=== PATIENT | male | born 1960 | race Caucasian/White ===

== ENCOUNTER → 2020-11-11 11:06 | Outpatient (BNVA) | payer OTHER, SELFPAY | PROVIDERS: PCP Internal Medicine; Referring Provider Internal Medicine; Visit Provider Orthopaedic Surgery | DX: M65.341 Trigger finger, right ring finger (principal); M65.331 Trigger finger, right middle finger | CPT/HCPCS: 99202 ==

== ENCOUNTER 2020-12-09 11:02 | Day surgery (SDC) | payer OTHER, SELFPAY ==
[2020-12-09 11:18] VITALS: BMI 18.4
[2020-12-09 11:26] VITALS: BP 116/79; PULSE 77; RESP 18; TEMP 37.6; O2SAT 99
--- NOTE | 2020-12-09 13:08 | P.OP_ITS ---
Operative Note Operative Note Date of Service: 12/09/20 Narrative: Operative Note Preop diagnosis: 1. Right ring finger Trigger finger Postop diagnosis: 1. Right ring finger Trigger finger Procedure: 1. Right ring finger A1 osmani release Surgeon: Suly Mane MD Anesthesia: local block using 1% lidocaine with epinephrine Findings: No locking or catching after A1 osmani release EBL: Less than 5 mL Tourniquet time: None Specimens: None Complications: None Disposition: Brought to recovery room in stable condition Plan: Follow-up for 7-10 days for wound check and suture removal Indications: The patient is 60 years old, with a right ring finger trigger finger that has been unresponsive to nonoperative management. The risks and benefits of operative treatment including but not limited to risk of damage to blood vessels, nerves, tendons, infection, persistent pain, persistent symptoms, recurrence or possible need for additional surgery were discussed with the patient and the patient wishes to proceed with surgery. Procedure: Once consent was obtained a local block was performed in the preop area using a combination of 1% lidocaine with epinephrine. The patient was then brought back to the operating suite and placed on the operative table in supine position. A tourniquet was applied to the proximal aspect of the right upper extremity and the limb was prepped and draped in a standard surgical fashion. Once assured that we had a good block, a 1.5 cm oblique incision was made centered over the A1 osmani of the right ring finger . The incision was made through the skin to the subcutaneous tissues using a #15 blade. Careful dissection was made down to the level of the A1 osmani using tenotomy scissors, with care being taken to protect the nearby neurovascular structures. A longitudinal incision was made in the A1 osmani 1st using a #15 blade, then using tenotomy scissors under direct visualization. The A1 osmani was noted to be thickened. Following our A1 osmani release, we no longer saw any locking or catching of the digit with flexion and extension. Once satisfied with our A1 osmani release the wound was copiously irrigated with normal saline and hemostasis was obtained with a brief period of local pressure. The skin edges were reapproximated with some 5.0 nylon suture material and a sterile dressing was applied. The patient appears to have tolerated the procedure well and with no complicati ons. All digits were well vascularized at the conclusion of the case.
[2020-12-09 13:10] VITALS: BP 104/58; PULSE 80; RESP 18; TEMP 37; O2SAT 97
== END 2020-12-09 13:27 | disposition home or self-care (01) ==
PROVIDERS: Visit Provider Orthopaedic Surgery
PROC: (CPT 26055; principal; 2020-12-09 12:00)
DX: M65.341 Trigger finger, right ring finger (principal); R73.03 Prediabetes; C14.0 Malignant neoplasm of pharynx, unspecified; Z79.899 Other long term (current) drug therapy; Z88.8 Allergy status to other drugs, medicaments and biological substances
CPT/HCPCS: 26055

== ENCOUNTER → 2020-12-24 11:17 | Outpatient (BNVA) | payer OTHER, SELFPAY | PROVIDERS: Visit Provider Orthopaedic Surgery | DX: M65.341 Trigger finger, right ring finger (principal); M65.331 Trigger finger, right middle finger | CPT/HCPCS: 99212 ==

== ENCOUNTER 2021-03-26 18:10 | Emergency (ER) | payer OTHER, SELFPAY ==
--- NOTE | ~2021-03-26 | CT_ITS ---
EXAMINATION: CT SOFT TISSUE NECK WITHOUT CONTRAST CLINICAL INFORMATION: New right neck pain. History of tonsillar cancer. COMPARISON: Previous neck CT April 2018 TECHNIQUE: Helical imaging was performed in the axial plane with generation of coronal and sagittal reformatted images. This CT examination was performed using dose optimization techniques as appropriate, variously including the following: *Automated exposure control *Adjustment of mA and/or kV according to patient size (this includes techniques or standardized protocols for targeted exams where dose is matched to indication/reason for exam; i.e. extremities or head) *Use of iterative reconstruction technique DLP: 375 mGy-cm FINDINGS: There is asymmetric increased soft tissue seen in the right oropharynx. This begins just inferior to the torus tubarius and extends to the level of the angle of the mandible. This area is heterogeneous in signal with low-attenuation possibly cystic area measuring 1 cm. This measures 1.3 x 2.3 x 3 cm in transverse AP and longitudinal dimension. There is asymmetric thickening of the right aryepiglottic fold and effacement of the right piriform sinus. The patient is edentulous. There is increased sclerosis of the mandible and superior alveolar ridge. This may represent post radiation change. The larynx is normal. The salivary glands and thyroid gland are normal. Visualized intracranial structures are unremarkable. The orbits are normal appearing. There is bilateral maxillary sinus disease, right greater than left. There are erosive changes of the posterior inferior wall of the right maxillary sinus and destruction of the bone. The paranasal sinuses, mastoid air cells and middle ears are otherwise clear. There is asymmetric appearance of the temporomandibular joints with slight anterior subluxation of the left mandibular condyle compared to the right. There are no enlarged lymph nodes. There is a small amount of fluid seen adjacent to the right sternocleidomastoid muscle near its attachment to the sternum. There is atherosclerotic disease. There is biapical pleural and parenchymal scarring, right greater than left. There are scattered areas of mild bronchial wall thickening and increased peribronchial attenuation seen in the right upper lobe. There is a 4 mm right upper lobe nodule axial image 152 series 2. This is not included in the [id number] on previous neck CT scan and cannot be compared. There is shotty mediastinal lymphadenopathy. There are degenerative changes of the cervical spine. CT/CT soft tissue neck wo con IMPRESSION: Abnormal heterogeneous appearing soft tissue in the right oropharynx. This appears decreased in size compared to April 2018. It is uncertain whether this represents post treatment change or could represent residual neoplasm. Asymmetric thickening of the right aryepiglottic fold and effacement of the right piriformis sinus. No enlarged lymph nodes seen. Increased sclerosis heterogeneous attenuation of the mandible and superior alveolar ridge, question representing post radiation change. Bilateral maxillary sinus disease, right greater than left. There is bone destruction of the posterior inferior wall of the right maxillary sinus. This may be related to infection or post radiation change.
[2021-03-26 18:30] VITALS: BP 132/76; BP 134/78; PULSE 77; RESP 18; TEMP 36.7; O2SAT 95; O2SAT 98; BMI 17.9
--- NOTE | 2021-03-26 19:50 | ED.GENADULT ---
HPI - General Adult General Chief complaint: Neck Pain/Injury Stated complaint: NECK PAINS/P COUGHING FIT Time Seen by Provider: 03/26/21 19:34 Source: patient Mode of arrival: ambulatory Limitations: no limitations History of Present Illness HPI narrative: Patient comes emergency room complaining of right-sided neck pain for 3 weeks. Patient denies any injury. Patient states that 3 weeks ago, he had a lot of vomiting, after he was done, he noticed that the right side of her neck started hurting. Patient denies fever chills, no midline neck tenderness or left-sided neck pain. Related Data Home Medications Medication Instructions Recorded Confirmed oxycodone 10 mg tablet 10 mg PO QID PRN 11/11/20 polyethylene glycol 3350 17 gram 17 g PO DAILY 11/11/20 oral powder packet Previous Rx's Medication Instructions Recorded hydrocodone-acetaminophen 1 tab PO Q4-6H PRN #5 tab 12/09/20 diazepam [Valium] 2 mg PO TID PRN #10 tab 03/26/21 hydromorphone [Dilaudid] 2 mg PO Q6H PRN #10 tab 03/26/21 Allergies Allergy/AdvReac Type Severity Reaction Status Date / Time Adhesive Tape Allergy Unknown rash Uncoded 03/26/21 18:30 clonidine Allergy Unknown Unknown Uncoded 03/26/21 18:30 Review of Systems Review of Systems: Constitutional : No Weight loss, No Fever, No Chills, No Night Sweats, No Fatigue, No Malaise ENT/Mouth : No Hearing loss, No Ear Pain, No Nasal Congestion, No Sinus Pain, No Hoarseness, No sore throat, No Rhinorrhea, No Swallowing Difficulty Eyes: No Eye Pain, No Swelling, No Redness, No Foreign Body, No Discharge, No Vision Changes Cardiovascular : No Chest Pain, No SOB, No Dyspnea on Exertion, No Orthopnea, No Edema, No Palpitations Respiratory : No Cough, No Sputum, No Wheezing, No Smoke Exposure, No Dyspnea Gastrointestinal : No Nausea, No Vomiting, No Diarrhea, No Constipation, No abdominal Pain, No Hematochezia, No Melena Genitourinary : no irregular bleeding, No Dysuria, No Urinary Frequency, No Hematuria, No Urinary Incontinence, No Urgency, No Flank Pain, No Urinary Flow Changes, No Hesitancy Musculoskeletal : No joint pain, No Myalgias, No Joint Swelling, complaining of right-sided neck pain for 3 weeks Skin : No Skin Lesions, No rash Neuro : No Weakness, No Numbness, No Paresthesias, No Loss of Consciousness, No Dizziness, No Headache Psych : No Anxiety/Panic, No Depression, No SI/HI/AH/VH, No Social Issues, Heme/Lymph: No Bruising, No Bleeding,No Lymphadenopathy Endocrine : No Polyuria, No Polydipsia, No Temperature Intolerance PMF Past Medical History Medical History Borderline diabetic Throat cancer Family History Family History Father No problems noted. Mother No problems noted. Social History Social History Unable to assess alcohol history related to: Unknown Alcohol intake: never Smoked in Last 30 Days: No Use of substances other than those prescribed or required for medical reasons: No Any prior treatment program specific to substance use: No Advance Directives: No Advance Directives Information Provided: No Current occupational status: unemployed Current occupation: right handed Physical Exam Vital Signs: Vital Signs: Last Vital Signs Temp 98.1 F 03/26/21 18:30 Pulse 78 03/26/21 22:10 Resp 16 03/26/21 22:10 BP 135/67 03/26/21 22:10 Pulse Ox 99 03/26/21 22:10 Body Mass Index 17.9 Appearance: Alert. Oriented X3. No acute distress. Eyes: Pupils equal, round and reactive to light. ENT: C-collar in place, cannot open fully his mouth due to color. Neck: C-collar in place, no C-spine tenderness, complaining of pain on the right side of the neck CVS: Normal heart rate and rhythm. Pulses normal. Normal S1 and S2 Respiratory: No respiratory distress. Breath sounds normal. No Wheezing. No rales Abdomen: Soft and nontender. No rigidity. No distention. good BS x4 Skin: Skin warm and dry. Normal skin color. Normal skin turgor. Extremities: No lower extremity edema. No lower extremity edema. No Lacerations. No Rash Neuro: Oriented X 3. No motor deficit. No sensory deficit. Moving all extermities. No slurred speech. Course Course Course Narrative: I discussed the CT scan with the patient and his daughter. The CT scan has significant abnormal readings, discussed with the patient his daughter that is uncertain whether the patient has new bone destruction in the posterior inferior wall of the right maxillary sinus, a possible residual neoplasm, or all of his are old, secondary to radiation. I discussed with the patient that we can wait until his records from the other hospital become available for comparison and then we can make a decision. The patient and the daughter decided that they would like to go home, and they can follow up with [facility] specialist tomorrow. I provided for them CT scan and printout. Patient was given 1 dose of IM Dilaudid with no significant relief. Patient was given additional dose of oral Dilaudid and Valium. As mentioned above, patient will like to be discharged home and he will follow-up with his specialist tomorrow. The patient's prescriptions had to be printed, there was a system error transmitted the prescriptions to the patient's pharmacy Medical Decision Making Imaging Data Neck CT: Radiologist's impression: FINDINGS: There is asymmetric increased soft tissue seen in the right oropharynx. This begins just inferior to the torus tubarius and extends to the level of the angle of the mandible. This area is heterogeneous in signal with low-attenuation possibly cystic area measuring 1 cm. This measures 1.3 x 2.3 x 3 cm in transverse AP and longitudinal dimension. There is asymmetric thickening of the right aryepiglottic fold and effacement of the right piriform sinus. The patient is edentulous. There is increased sclerosis of the mandible and superior alveolar ridge. This may represent post radiation change. The larynx is normal. The salivary glands and thyroid gland are normal. Visualized intracranial structures are unremarkable. The orbits are normal appearing. There is bilateral maxillary sinus disease, right greater than left. There are erosive changes of the posterior inferior wall of the right maxillary sinus and destruction of the bone. The paranasal sinuses, mastoid air cells and middle ears are otherwise clear. There is asymmetric appearance of the temporomandibular joints with slight anterior subluxation of the left mandibular condyle compared to the right. There are no enlarged lymph nodes. There is a small amount of fluid seen adjacent to the right sternocleidomastoid muscle near its attachment to the sternum. There is atherosclerotic disease. There is biapical pleural and parenchymal scarring, right greater than left. There are scattered areas of mild bronchial wall thickening and increased peribronchial attenuation seen in the right upper lobe. There is a 4 mm right upper lobe nodule axial image 152 series 2. This is not included in the [id number] on previous neck CT scan and cannot be compared. There is shotty mediastinal lymphadenopathy. There are degenerative changes of the cervical spine. CT/CT soft tissue neck wo con IMPRESSION: Abnormal heterogeneous appearing soft tissue in the right oropharynx. This appears decreased in size compared to April 2018. It is uncertain whether this represents post treatment change or could represent residual neoplasm. Asymmetric thickening of the right aryepiglottic fold and effacement of the right piriformis sinus. No enlarged lymph nodes seen. Increased sclerosis heterogeneous attenuation of the mandible and superior alveolar ridge, question representing post radiation change. Bilateral maxillary sinus disease, right greater than left. There is bone destruction of the posterior inferior wall of the right maxillary sinus. This may be related to infection or post radiation change. Discharge Plan Discharge Clinical Impression: Neck pain Patient Disposition: Home, Self-Care Instructions: Neck Pain (ED) Additional Instructions: Please follow-up with your primary care physician tomorrow and with your specialist tomorrow. If you have any worsening or new symptoms, please return to the emergency room or call 911 Prescriptions: New hydromorphone [Dilaudid] 2 mg tablet 2 mg PO Q6H PRN (Reason: pain) Qty: 10 RF: 0 diazepam [Valium] 2 mg tablet 2 mg PO TID PRN (Reason: muscle spasm) Qty: 10 RF: 0 No Action hydrocodone-acetaminophen 5-325 mg tablet 1 tab PO Q4-6H PRN (Reason: pain) Qty: 5 RF: 0
[2021-03-26 20:05] VITALS: RESP 18
[2021-03-26] MEDS: HYDROmorphone HCl 1 MG/ML SYRINGE IM (20:05)
--- NOTE | 2021-03-26 20:16 | PC.NURSE ---
went to give client his pain medication and he was up walking around in room with collar. client educated the importance to stay in bed while collared. client refused valium due to swallowing difficulties. clientdid take injection of pain medication.
[2021-03-26 21:32] VITALS: BP 123/68; PULSE 84; RESP 16; O2SAT 99
[2021-03-26 22:10] VITALS: BP 135/67; PULSE 78; RESP 16; O2SAT 99
[2021-03-26] MEDS: HYDROmorphone HCl 2 MG TABLET 1 MG PO (23:41)
[2021-03-26] MEDS: diazePAM 5 MG TABLET PO (23:46)
== END 2021-03-26 23:50 | disposition home or self-care (01) ==
PROVIDERS: Emergency Provider Emergency Medicine
DX: M54.2 Cervicalgia (principal); Z85.21 Personal history of malignant neoplasm of larynx
CPT/HCPCS: 70490; 96372; 99284; 99285; J1170

== ENCOUNTER 2021-07-30 13:21 | Emergency (ER) | payer OTHER, SELFPAY ==
--- NOTE | ~2021-07-30 | XR_ITS ---
EXAMINATION: LEFT ANKLE AND LEFT FOOT. CLINICAL INFORMATION: Status post fall. Pain. COMPARISON: None TECHNIQUE: Left ankle 2 views. Left foot 3 views. FINDINGS: LEFT ANKLE: There is no mild lateral malleolar soft tissue swelling. No visible acute fracture, dislocation. There is mild dorsal intertarsal spurring. LEFT FOOT: There is a nondisplaced fracture base of fifth metatarsal. No additional fracture seen. The ankle mortise and subtalar joints are normal. XR/XR ankle LT 2V IMPRESSION: Undisplaced fracture base of fifth metatarsal. No visible acute fracture or dislocation seen. Unremarkable left ankle exam.
--- NOTE | ~2021-07-30 | XR_ITS ---
EXAMINATION: LEFT ANKLE AND LEFT FOOT. CLINICAL INFORMATION: Status post fall. Pain. COMPARISON: None TECHNIQUE: Left ankle 2 views. Left foot 3 views. FINDINGS: LEFT ANKLE: There is no mild lateral malleolar soft tissue swelling. No visible acute fracture, dislocation. There is mild dorsal intertarsal spurring. LEFT FOOT: There is a nondisplaced fracture base of fifth metatarsal. No additional fracture seen. The ankle mortise and subtalar joints are normal. XR/XR foot LT min 3V IMPRESSION: Undisplaced fracture base of fifth metatarsal. No visible acute fracture or dislocation seen. Unremarkable left ankle exam.
[2021-07-30 14:21] VITALS: BP 123/75; BP 129/75; PULSE 81; PULSE 89; RESP 18; TEMP 35.8; O2SAT 100; O2SAT 99; BMI 19.8
--- NOTE | 2021-07-30 15:24 | ED.LOWEXIN ---
HPI - Extremity Injury (Lower) General Chief Complaint: Extremity Injury, Lower Stated Complaint: FALL FROM STANDING,ANKLE PAIN/SWELLING Time Seen by Provider: 07/30/21 14:28 Source: patient Mode of arrival: ambulatory Limitations: no limitations History of Present Illness HPI Narrative: 61-year-old male with history of throat cancer presents to the ER with left foot pain after he twisted his ankle at home while reaching for the remote control earlier today. He fell down when he hurt his foot, but he did not hit his head or lose consciousness. He is not on any blood thinners at home. He is on chronic pain medicine for his cancer. He is difficult to understand due to his throat cancer. He reports this is his baseline speech. He at baseline ambulates with a cane and is able to do so but has increased pain in his left foot. He has no numbness or tingling. MD complaint: ankle injury and foot injury Onset (ago): hour(s) Type of Injury: inversion Place: home Severity: moderate Severity scale (1-10): 6 Relieving factors: immobilization and rest Exacerbating factors: weight bearing, movement and palpation Context: fall Associated symptoms: swelling and able to partially bear weight Other symptoms: none Related Data Home Medications Medication Instructions Recorded Confirmed oxycodone 10 mg tablet 10 mg PO QID PRN 11/11/20 polyethylene glycol 3350 17 gram 17 g PO DAILY 11/11/20 oral powder packet Previous Rx's Medication Instructions Recorded hydrocodone 5 mg-acetaminophen 325 1 tab PO Q4-6H PRN #5 tab 12/09/20 mg tablet diazepam 2 mg tablet (Valium) 2 mg PO TID PRN #10 tab 03/26/21 hydromorphone 2 mg tablet 2 mg PO Q6H PRN #10 tab 03/26/21 (Dilaudid) hydromorphone 4 mg tablet 4 mg PO Q4-6H PRN #10 tab 07/30/21 (Dilaudid) Allergies Allergy/AdvReac Type Severity Reaction Status Date / Time Adhesive Tape Allergy Unknown rash Uncoded 07/30/21 14:21 clonidine Allergy Unknown Unknown Uncoded 07/30/21 14:21 Review of Systems Review of Systems: Constitutional: No Fever, No Chills ENT/Mouth: + sore throat, No Rhinorrhea, + Swallowing Difficulty Cardiovascular: No Chest Pain, No SOB Respiratory: No Cough, No Sputum Gastrointestinal: No Nausea, No Vomiting, No Diarrhea, No abdominal Pain Musculoskeletal: + joint pain, + Myalgias Skin: + Skin Lesions, No rash Neuro: No Weakness, No Numbness, No Dizziness, No Headache Heme/Lymph: No Bruising PMFSH Past Medical History Medical History Borderline diabetic Throat cancer Family History Family History Father No problems noted. Mother No problems noted. Social History Social History Unable to assess alcohol history related to: Unknown Alcohol intake: never Advance Directives: No Advance Directives Information Provided: Yes Current occupational status: unemployed Current occupation: right handed Physical Exam Vital Signs: Vital Signs: Last Vital Signs Temp 96.5 F L 07/30/21 14:21 Pulse 81 07/30/21 14:21 Resp 18 07/30/21 14:21 BP 129/75 07/30/21 14:21 Pulse Ox 99 07/30/21 14:21 Body Mass Index 19.8 Appearance: Alert. Oriented X3. No acute distress. HEENT: normal inspection CVS: Normal heart rate and rhythm. Pulses normal. Respiratory: No respiratory distress. Skin: Skin warm and dry. Normal skin color. Normal skin turgor. No rashes. Extremities: left lateral foot with swelling and tenderness along 5th metatarsal, mild erythema, warm and well perfused. NV intact distally. ambulating with steady gait. left ankle with minimal swelling and no tenderness to the lateral malleolus. Neuro: Oriented X 3. No motor deficit. No sensory deficit. Garbled speech due to throat cancer, chronic Course Course Course Narrative: 61-year-old male presenting to the ER with left lateral foot pain and ankle pain after she twisted his ankle earlier today. He is able to ambulate using his cane. The foot is tender and swollen along the 5th metatarsal, will get x-rays for further evaluation. Reevaluation(s) Reevaluation #1: X-ray showing a nondisplaced 5th metatarsal fracture. He was placed in a walking boot. He will be given additional p.o. Dilaudid which she is on chronically. He is due for refill tomorrow. He will follow-up with orthopedics for his foot fracture. Results and management were discussed with his daughter over the phone as well. Stable for DC home. Critical Care Time Critical Care Time Critical Care Time: No Discharge Plan Discharge Clinical Impression: Metatarsal fracture Qualifiers: Encounter type: initial encounter Metatarsal bone: fifth Fracture type: closed Fracture alignment: nondisplaced Laterality: left Qualified Code(s): S92.355A - Nondisplaced fracture of fifth metatarsal bone, left foot, initial encounter for closed fracture Patient Disposition: Home, Self-Care Instructions: Foot Fracture in Adults (ED) Additional Instructions: Your x-ray showed a non-displaced fracture of the foot bone associated with your pinky toe. Wear the walking boot given to your in the ER when you are walking around. When you are home resting, take it off, elevate your foot and apply ice several times per day. Take Motrin and/or Tylenol as needed for pain. Follow up with Orthopedics in 1 week - name and number listed below. Follow up with your doctor as needed. If you develop new or worsening symptoms call 911 or come back to the ER for further evaluation. Prescriptions: New hydromorphone [Dilaudid] 4 mg tablet 4 mg PO Q4-6H PRN (Reason: pain) Qty: 10 RF: 0 No Action hydrocodone-acetaminophen 5-325 mg tablet 1 tab PO Q4-6H PRN (Reason: pain) Qty: 5 RF: 0 hydromorphone [Dilaudid] 2 mg tablet 2 mg PO Q6H PRN (Reason: pain) Qty: 10 RF: 0 diazepam [Valium] 2 mg tablet 2 mg PO TID PRN (Reason: muscle spasm) Qty: 10 RF: 0 Referrals: Lety Ogden PA-C [[facility] [employer]] - 1 week (5th metatarsal fracutre) Interventions: ED Discharge Assessment Last Done: 07/30/21 16:32 Discharge Date/Time: 07/30/21 16:32
== END 2021-07-30 16:32 | disposition home or self-care (01) ==
PROVIDERS: Emergency Provider Internal Medicine
DX: S92.355A Nondisplaced fracture of fifth metatarsal bone, left foot, initial encounter for closed fracture (principal); G89.3 Neoplasm related pain (acute) (chronic); C14.0 Malignant neoplasm of pharynx, unspecified; Z79.891 Long term (current) use of opiate analgesic; X50.1XXA Overexertion from prolonged static or awkward postures, initial encounter; Y93.9 Activity, unspecified; Y92.009 Unspecified place in unspecified non-institutional (private) residence as the place of occurrence of the external cause; Y99.9 Unspecified external cause status
CPT/HCPCS: 73600; 73630; 99283

== ENCOUNTER 2021-11-09 13:53 | Emergency (ER) | payer OTHER, SELFPAY ==
--- NOTE | ~2021-11-09 | CT_ITS ---
EXAMINATION: CT CHEST WITHOUT CONTRAST CLINICAL INFORMATION: Cough and vomiting COMPARISON: Previous chest x-ray most recent December 2017 TECHNIQUE: Multidetector volumetric CT imaging of the chest was done. Axial MIP volume rendering provided. Sagittal and coronal reformatted images were obtained. This CT examination was performed using dose optimization techniques as appropriate, variously including the following: *Automated exposure control *Adjustment of mA and/or kV according to patient size (this includes techniques or standardized protocols for targeted exams where dose is matched to indication/reason for exam; i.e. extremities or head) *Use of iterative reconstruction technique DLP: 255 mGy-cm FINDINGS: LUNGS: There is evidence of emphysema. There is biapical pleural and parenchymal scarring. There are scattered areas of bronchial wall thickening, increased bronchial soft tissue opacification and peribronchial nodular opacities or tree-in-bud appearance. Findings are suggestive of airways disease. Largest areas are in the right middle lobe and lingula right middle lobe findings can be seen on old exam from 07/19/2012 exam and do not appear appreciably changed. Nodular opacities and airways disease in the right upper, right middle and left lower lobe are new in the interval from 2011. MEDIASTINUM: There is diffuse mediastinal lymphadenopathy. Larger lymph nodes are upper normal in size measuring 1 cm in short axis in the right paratracheal and precarinal regions. The heart does not appear enlarged. There is coronary artery calcification. There is no pericardial effusion. The esophagus appears normal. No abnormal wall thickening extraluminal air or mediastinal fluid is seen. PLEURA: There is no pleural effusion. No pleural mass or thickening. AXILLA: Is right axillary lymphadenopathy. There is bilateral gynecomastia. UPPER ABDOMEN: See abdominal and pelvic CT report OSSEOUS STRUCTURES: Unremarkable. CT/CT chest wo con IMPRESSION: Emphysema. Biapical pleural and parenchymal scarring, increased from prior exam. Diffuse airways disease with peribronchial nodular opacities increased from previous exam. Chest CT follow-up recommended. Fleischner guidelines were followed.
--- NOTE | ~2021-11-09 | CT_ITS ---
EXAMINATION: CT ABDOMEN AND PELVIS WITHOUT CONTRAST CLINICAL INFORMATION: Cough and vomiting COMPARISON: Previous CT of the abdomen and pelvis from 2009 and abdominal ultrasound December 2015 TECHNIQUE: Multidetector volumetric imaging was performed from the superior aspect of the liver through the pubic symphysis. Sagittal and coronal reformatted images were obtained on the technologist's workstation. This CT examination was performed using dose optimization techniques as appropriate, variously including the following: *Automated exposure control *Adjustment of mA and/or kV according to patient size (this includes techniques or standardized protocols for targeted exams where dose is matched to indication/reason for exam; i.e. extremities or head) *Use of iterative reconstruction technique DLP: 499 mGy-cm FINDINGS: LUNG BASES: The visualized lung bases are unremarkable. LIVER, GALLBLADDER, AND BILIARY TREE: The contour of the liver is slightly irregular questionable for mild cirrhotic change. The liver is normal in size. There is a small calcification in the right lobe of the liver near the gallbladder that is stable. No other focal liver lesion is seen. The gallbladder is normal-appearing. There is no biliary duct dilatation. PANCREAS: There are small calcifications in the uncinate process of the head of the pancreas questionable for evidence of chronic pancreatitis. The pancreas is otherwise unremarkable. SPLEEN: Unremarkable. ADRENAL GLANDS: Unremarkable. KIDNEYS AND URETERS: The small 1 to 2 mm stone in the lower pole of the left kidney. There is a subcentimeter high attenuation lesion in the lower pole the right kidney probably representing a hyperdense cyst. BLADDER: Unremarkable. GASTROINTESTINAL TRACT: There is a G-tube in the stomach. There is question of mild bowel wall thickening of the mid and distal stomach. Small and large bowel is unremarkable. The appendix is unremarkable. ABDOMINAL WALL: No significant hernia is appreciated. LYMPH NODES: Normal. VASCULAR: There is evidence of severe atherosclerotic disease. No aneurysm is seen. PELVIC VISCERA: Unremarkable OSSEOUS STRUCTURES: There are degenerative changes of the spine. CT/CT abdomen pelvis wo con IMPRESSION: G-tube in satisfactory position in the stomach. There is question of mild wall thickening of the stomach. Small left renal stone. Question changes of chronic pancreatitis in the head of the pancreas. Severe atherosclerotic disease. Fleischner guidelines were followed.
[2021-11-09 14:00] VITALS: BP 156/73; PULSE 95; RESP 15; TEMP 37.1; O2SAT 99
[2021-11-09 14:05] VITALS: BP 134/74; BP 156/73; PULSE 89; PULSE 90; RESP 16; TEMP 37.1; O2SAT 98; O2SAT 99; BMI 20.1
--- NOTE | 2021-11-09 14:52 | ED.GENADULT ---
HPI - General Adult General Chief complaint: Nausea/Vomiting/Diarrhea Stated complaint: nausea/vomiting/swelling Time Seen by Provider: 11/09/21 14:51 Source: patient Limitations: no limitations History of Present Illness HPI narrative: This is a 61-year-old male with a history of throat cancer status post surgery for the cancer, who does not take food or fluids by mouth but has been vomiting for 3 days. The patient does have a G-tube. Does complain of some abdominal pain. He denies diarrhea. Has been urinating some. He denies any fever. He has also noted increased cough recently, productive of some light phlegm Related Data Home Medications Medication Instructions Recorded Confirmed oxycodone 10 mg tablet 10 mg PO QID PRN 11/11/20 polyethylene glycol 3350 17 gram 17 g PO DAILY 11/11/20 oral powder packet Previous Rx's Medication Instructions Recorded hydrocodone 5 mg-acetaminophen 325 1 tab PO Q4-6H PRN #5 tab 12/09/20 mg tablet diazepam 2 mg tablet (Valium) 2 mg PO TID PRN #10 tab 03/26/21 hydromorphone 2 mg tablet 2 mg PO Q6H PRN #10 tab 03/26/21 (Dilaudid) hydromorphone 4 mg tablet 4 mg PO Q4-6H PRN #10 tab 07/30/21 (Dilaudid) ondansetron 4 mg disintegrating 4 mg PO Q6H PRN #20 tab 11/09/21 tablet Allergies Allergy/AdvReac Type Severity Reaction Status Date / Time Adhesive Tape Allergy Unknown rash Uncoded 07/30/21 14:21 clonidine Allergy Unknown Unknown Uncoded 07/30/21 14:21 Review of Systems Constitutional: Constitutional: Reports as per HPI and Denies fever(s) Eyes: Eyes: Reports as per HPI ENT: Reports as per HPI Cardiovascular: Cardiovascular: Reports no additional cardiovascular complaints Respiratory: Respiratory: Reports cough Gastrointestinal: Gastrointestinal: Denies diarrhea, Reports nausea and Reports vomiting Musculoskeletal: Musculoskeletal: Reports no additional musculoskeletal complaints Neurologic: Denies Sensory deficit (Neuro) [facility] Past Medical History Medical History Borderline diabetic Throat cancer Family History Family History Father No problems noted. Mother No problems noted. Social History Social History Unable to assess alcohol history related to: Unknown Alcohol intake: never Advance Directives: No Advance Directives Information Provided: Yes Current occupational status: unemployed Current occupation: right handed Physical Exam Vital Signs: Vital Signs: Last Vital Signs Temp 98.7 F 11/09/21 14:05 Pulse 89 11/09/21 14:05 Resp 16 11/09/21 14:05 BP 156/73 H 11/09/21 14:05 Pulse Ox 99 11/09/21 14:05 BMI result Body Mass Index 20.1 Const: Other: Patient with right side of the neck to the upper chest and right ear status post prior surgery with scar tissue, chronic erythema. Patient with a frequent hacking cough. Patient also dry heaving. General: cooperative, no acute distress and alert Orientation/consciousness: patient oriented x3 HENMT: Head: Yes normal to inspection Eyes: General: appearance normal, both eyes and all related structures Eyelids: Yes eyelids normal Conjunctivae: conjunctivae normal Pupils: Equal, round and reactive pupils present Neck: Neck: Yes normal visual inspection and Yes supple Chest: Chest palpation & inspection: normal inspection of the chest Resp: Effort & Inspection: normal respiratory effort Auscultation: clear to auscultation bilaterally Cardio: Rate: regular rate Rhythm: regular rhythm Heart sounds: S1 normal heart sound present, S2 normal heart sound present, no gallops, no murmurs and no rubs GI: Other: G-tube in place. Bowel sounds hypoactive. No distension Palpation (GI): Soft to palpation, nontender and Other GI palpation findings present (Non-distended) Auscultation: normal bowel sounds Skin: General skin exam: no rashes or lesions noted Neuro: General: patient oriented x3, no focal motor deficits and CN's II-XI intact bilaterally Cranial nerves: Yes Equal, round and reactive pupils present Cognition (Neuro): normal cognition Motor exam (neuro): 5/5 motor strength present throughout Sensory Exam: No Sensory deficit (Neuro) Extrem: General: Yes normal to inspection and Yes no pedal edema Psych: Appearance: grossly normal Affect: normal affect Medical Decision Making MDM Narrative Medical decision making narrative: Patient with history of head neck cancer, does not take p.o. food or fluids, takes only via G-tube, complains of vomiting. Patient did have some wetness dry heaving here but the patient was mostly sleeping during his ED stay. The patient was witnessed ambulating to the bathroom a few times and ambulated normally. Labs do not show any evidence of dehydration or hypokalemia. BUN to creatinine ratio is normal. CT of the chest abdomen and pelvis without IV contrast did not show any evidence of pneumonia, bowel obstruction. Lipase was normal. Will prescribe Zofran for the patient to use sublingually as needed for nausea, and he can follow up with primary care physician. Patient has had medicine associated nausea and vomiting the past Lab Data Lab results reviewed: Yes I reviewed the patient's lab results. Result diagrams: 11/09/21 15:25 11/09/21 15:25 Labs: Lab Results 11/09/21 11/09/21 Range/Units 15:25 15:25 WBC 9.6 (4.8-10.8) X10*3/uL RBC 4.23 L (4.60-5.80) X10*6/uL Hgb 13.0 L (14.0-18.0) g/dl Hct 39.1 L (42.0-52.0) % MCV 92.4 (80.0-98.0) fL MCH 30.7 (27.0-33.0) pg MCHC 33.2 (31.0-36.0) g/dl RDW 13.5 (11.0-16.0) % Plt Count 164 (160-400) X10*3/uL MPV 9.9 (9.4-12.4) fL Immature Gran % (Auto) 0.4 (0.0-0.4) % Neut % (Auto) 87.9 H (45-73) % Lymph % (Auto) 4.8 L (20-40) % Mcintosh % (Auto) 6.8 (2-11) % Eos % (Auto) 0.0 (0-4) % Baso % (Auto) 0.1 (0-2) % Lymph # (Auto) 0.5 L (1.2-4.9) X10*3/uL Mcintosh # (Auto) 0.7 (0.1-1.2) X10*3/uL Eos # (Auto) 0.0 (0.0-0.4) X10*3/uL Baso # (Auto) 0.0 (0.0-0.2) X10*3/uL Abs Immat Gran (auto) 0.04 H (0.00-0.03) X10*3/uL Absolute Neuts (auto) 8.4 H (2.0-8.3) x10*3/uL Absolute Nucleated RBC 0.000 (0.0-0.012) X10*3/uL Nucleated RBC % (auto) 0.0 (0.0-0.2) /100WBC Sodium 133 L (135-145) mmol/L Potassium 3.9 (3.3-5.1) mmol/L Chloride 94 L (96-108) mmol/L Carbon Dioxide 29 (22-29) mmol/L Anion Gap 14 (12-20) BUN 12 (9-16) mg/dL Creatinine 0.81 (0.5-1.4) mg/dL Estim Creat Clear Calc 82.7 Estimated GFR > 60 Random Glucose 147 H (60-115) mg/dL Calcium 9.8 (8.4-10.2) mg/dL Total Bilirubin 2.2 H (0.0-1.0) mg/dL AST 21 (5-37) U/L ALT 21 (0-40) U/L Alkaline Phosphatase 103 (39-117) U/L Total Protein 9.1 H (6.5-8.0) g/dL Albumin 4.3 (3.5-5.0) g/dL Lipase < 4 L (8-78) U/L Imaging Data CT chest without contrast: Radiologist's impression: IMPRESSION: Emphysema. Biapical pleural and parenchymal scarring, increased from prior exam. Diffuse airways disease with peribronchial nodular opacities increased from previous exam. Chest CT follow-up recommended. CT abdomen and pelvis without IV contrast: Radiologist's impression: IMPRESSION: G-tube in satisfactory position in the stomach. There is question of mild? wall thickening of the stomach. Small left renal stone. Question changes of chronic pancreatitis in the head of the pancreas. Severe atherosclerotic disease. ? Discharge Plan Discharge Clinical Impression: Vomiting Patient Disposition: Home, Self-Care Instructions: Acute Nausea and Vomiting (ED) Additional Instructions: Make sure to take plenty of fluids via your G-tube. Use the ondansetron as prescribed for nausea. Follow-up with primary care physician. Return for any new or worsened symptoms such as inability to hold down fluids, fever, shortness of breath or worsening cough Prescriptions: New ondansetron 4 mg tablet,disintegrating 4 mg PO Q6H PRN (Reason: nausea and vomiting) Qty: 20 RF: 0 No Action hydrocodone-acetaminophen 5-325 mg tablet 1 tab PO Q4-6H PRN (Reason: pain) Qty: 5 RF: 0 hydromorphone [Dilaudid] 2 mg tablet 2 mg PO Q6H PRN (Reason: pain) Qty: 10 RF: 0 diazepam [Valium] 2 mg tablet 2 mg PO TID PRN (Reason: muscle spasm) Qty: 10 RF: 0 hydromorphone [Dilaudid] 4 mg tablet 4 mg PO Q4-6H PRN (Reason: pain) Qty: 10 RF: 0
[2021-11-09 15:28] LABS: MANUAL DIFF FLAG NO
[2021-11-09] MEDS: 0.9 % Sodium Chloride 1,000 ML 999 ML IV (15:28)
[2021-11-09] MEDS: ondansetron HCL 4 MG/2 ML VIAL IVPUSH (15:29)
[2021-11-09 15:30] LABS: Basophils Percent Auto 0.1 % (0-2); Hematocrit 39.1 % (42.0-52.0); Imm Gran Abs Auto 0.04 X10*3/uL (0.00-0.03); Imm Gran Pct Auto 0.4 % (0.0-0.4); Lymphocytes Absolute Auto 0.5 X10*3/uL (1.2-4.9); Lymphocytes Percent Auto 4.8 % (20-40); Mean Corpuscular HGB Conc 33.2 g/dl (31.0-36.0); Mean Corpuscular Hemoglobin 30.7 pg (27.0-33.0); Mean Corpuscular Volume 92.4 fL (80.0-98.0); Mean Platelet Volume 9.9 fL (9.4-12.4); Monocytes Absolute Auto 0.7 X10*3/uL (0.1-1.2); Monocytes Percent Auto 6.8 % (2-11); Neutrophils Absolute Auto 8.4 x10*3/uL (2.0-8.3); Neutrophils Percent Auto 87.9 % (45-73); Platelet Count 164 X10*3/uL (160-400); Red Blood Count 4.23 X10*6/uL (4.60-5.80); Red Cell Distribution Width 13.5 % (11.0-16.0); White Blood Count 9.6 X10*3/uL (4.8-10.8)
[2021-11-09 15:53] LABS: Alanine Aminotransferase 21 U/L (0-40); Albumin Level 4.3 g/dL (3.5-5.0); Alkaline Phosphatase 103 U/L (39-117); Anion Gap 14 (12-20); Aspartate Amino Transferase 21 U/L (5-37); Bilirubin Total 2.2 mg/dL (0.0-1.0); Blood Urea Nitrogen 12 mg/dL (9-16); Calcium 9.8 mg/dL (8.4-10.2); Carbon Dioxide 29 mmol/L (22-29); Chloride 94 mmol/L (96-108); Creatinine Clr Calc Pharmacy 82.7; Estimated Glomerular Filt Rate > 60; Glucose Random 147 mg/dL (60-115); Lipase < 4 U/L (8-78); Potassium 3.9 mmol/L (3.3-5.1); Sodium 133 mmol/L (135-145); Total Protein 9.1 g/dL (6.5-8.0)
[2021-11-09 17:45] VITALS: BP 148/71; PULSE 106; RESP 18; TEMP 37.5; O2SAT 93
== END 2021-11-09 18:19 | disposition home or self-care (01) ==
PROVIDERS: Emergency Provider Emergency Medicine
DX: R11.2 Nausea with vomiting, unspecified (principal); R10.9 Unspecified abdominal pain; R19.7 Diarrhea, unspecified; Z79.899 Other long term (current) drug therapy
CPT/HCPCS: 36415; 71250; 74176; 80053; 83690; 85025; 96374; 99282; 99284; J2405

== ENCOUNTER → 2023-06-14 11:02 | Outpatient (BNVA) | payer OTHER, SELFPAY | PROVIDERS: PCP Registered Nurse; Visit Provider Surgery ==

== ENCOUNTER 2023-07-28 13:56 | Outpatient (AMB) | payer OTHER, SELFPAY ==
[2023-07-28 14:06] VITALS: BP 112/59; PULSE 85; BMI 19.3
--- NOTE | 2023-07-28 14:06 | A.OFFVIS_ITS ---
Intake Vital Signs 07/28/23 14:06 Height 5 ft 9 in Weight 131 lb BMI 19.3 BP 112/59 L Blood Pressure Location Rt brachial Position Sitting Pulse 85 Intake Visit Reasons: recall colonoscopy screening Intake Note: This patient presents for a consultation for recall colonoscopy screening. Patient c/o; last colonoscopy 11/02/2016, reports no complaints at this time. 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 I actually had done his colonoscopy in 2017. At that time, I was unable to advance the scope past hepatic flexure and had recommended a short interval follow-up. He says that he has had no colonoscopy since that time. He had been diagnosed with throat cancer in 2018 and had to go for surgery and radiation and chemotherapy because of that hands, he had been unable to follow-up for a repeat colonoscopy He denies any GI complaints although he does state that he occasionally sees small amounts of bright blood with bowel movements He has a G-tube in place feeding. He has been unable to have oral intake since the surgery for his throat cancer. [facility] Medical History (Updated 07/28/23 @ 14:51 by Marcial Metzger MD) Colon cancer screening Borderline diabetic Throat cancer Family History Father No problems noted. Mother No problems noted. Family/Other Breast cancer Sister Stomach cancer Social History Unable to assess alcohol history related to: Unknown Alcohol intake: never Current occupational status: unemployed Current occupation: right handed Review of Systems Const Denies chills and Denies fever(s) Card Denies chest pain, Denies dyspnea and Denies dyspnea on exertion Resp Denies cough, Denies dyspnea and Denies dyspnea on exertion GI Denies hematochezia and Denies change in bowel habits Denies hematuria and Denies difficulty urinating Musc Denies back pain and Denies limited range of motion Neuro Denies focal weakness and Denies convulsions Psych Denies depression and Denies mood swings Physical Exam Vital Signs: Last Vital Signs Pulse 85 07/28/23 14:06 BP 112/59 L 07/28/23 14:06 BMI result Body Mass Index 19.3 Const Other: Walks with a walker General: comfortable and no acute distress Orientation/consciousness: patient oriented x3 HEENT Other: He is unable to open his mouth wide Neck Other: Deformity on the right neck Neck: Yes no lymphadenopathy Resp Auscultation: clear to auscultation bilaterally Cardio Rhythm: regular rhythm GI Other: G-tube in place left upper quadrant Palpation (GI): Soft to palpation, nontender and no guarding Neuro General: patient oriented x3 Assessment & Plan Assessment & Plan (1) Colon cancer screening: Code(s): Z12.11 - Encounter for screening for malignant neoplasm of colon Plan: He is here to schedule for colonoscopy. I had done his colonoscopy in 2017 but this was complete and I could not go past his hepatic flexure that time. I had recommended a repeat colonoscopy within 1 year but he was diagnosed to have throat cancer and he had been with treatment since that time He does understand the technique of colonoscopy as well as the risks, benefits, and alternatives. However, he is unable to open his mouth wide because of his next surgery for his throat cancer. I told him that I will have to discuss his case with the anesthesiologist as they may not be comfortable with doing his procedure here with his limited airway options if he develops respiratory issues during the procedure. Coding Level of Care Code Est Pt Level 3 (20394) Diagnoses Colon cancer screening Z12.11
== END 2023-07-28 14:49 | disposition home or self-care (01) ==
PROVIDERS: PCP Registered Nurse; Visit Provider Surgery
DX: Z12.11 Encounter for screening for malignant neoplasm of colon (principal)
CPT/HCPCS: 99213

== ENCOUNTER → 2023-07-28 13:56 | Outpatient (BNVA) | payer OTHER, SELFPAY | PROVIDERS: PCP Registered Nurse; Visit Provider Surgery | DX: R19.5 Other fecal abnormalities (principal); C14.0 Malignant neoplasm of pharynx, unspecified; Z92.21 Personal history of antineoplastic chemotherapy; Z92.3 Personal history of irradiation; Z93.1 Gastrostomy status; Z79.891 Long term (current) use of opiate analgesic | CPT/HCPCS: 99212 ==

== ENCOUNTER 2023-12-16 11:56 | Outpatient (AMB) | payer OTHER, SELFPAY ==
--- NOTE | 2023-12-16 12:03 | MHC.OFFVIS ---
Intake Vital Signs 12/16/23 12:09 Height 5 ft 9 in Weight 137 lb BMI 20.2 BP 144/70 H Blood Pressure Location Lt brachial Position Sitting Pulse 91 Intake Visit Reasons: discuss colonoscopy Intake Note: Patient is seen in office to discuss colonoscopy. 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 I actually had done his colonoscopy in 2016. At that time, I was unable to advance the scope past hepatic flexure and had recommended a short interval follow-up. He says that he has had no colonoscopy since that time. He had been diagnosed with throat cancer in 2018 and had to go for surgery and radiation and chemotherapy and because of that , he had been unable to follow-up for a repeat colonoscopy He denies any GI complaints although he does state that he occasionally sees small amounts of bright blood with bowel movements He has a G-tube in place feeding. He has been unable to have oral intake since the surgery for his throat cancer. He had a recent Cologuard test which was positive so he is here to schedule for colonoscopy. [facility] Medical History Colon cancer screening Borderline diabetic Throat cancer Family History Father No problems noted. Mother No problems noted. Family/Other Breast cancer Sister Stomach cancer Social History Unable to assess alcohol history related to: Unknown Alcohol intake: never Current occupational status: unemployed Current occupation: right handed Review of Systems Const Denies chills and Denies fever(s) ENT Details: Difficulty with swallowing Reports dysphagia Card Denies chest pain, Denies dyspnea and Denies dyspnea on exertion Resp Denies cough, Denies dyspnea and Denies dyspnea on exertion GI Denies hematochezia, Denies change in bowel habits and Reports dysphagia Denies hematuria and Denies difficulty urinating Musc Denies back pain and Denies limited range of motion Neuro Denies focal weakness and Denies convulsions Psych Denies depression and Denies mood swings Physical Exam Vital Signs: Last Vital Signs Pulse 91 12/16/23 12:09 BP 144/70 H 12/16/23 12:09 BMI result Body Mass Index 20.2 Const General: comfortable and no acute distress Orientation/consciousness: patient oriented x3 HEENT Other: Unable to fully open his jaw because of his neck surgery, note of surgical scar on the neck Neck Neck: Yes no lymphadenopathy Resp Auscultation: clear to auscultation bilaterally Cardio Rhythm: regular rhythm GI Other: G-tube in place Palpation (GI): Soft to palpation, nontender and no guarding Neuro General: patient oriented x3 Assessment & Plan Assessment & Plan (1) Colon cancer screening: Code(s): Z12.11 - Encounter for screening for malignant neoplasm of colon Plan: He had a positive Cologuard test so he is here for colonoscopy. I explained him the technique of this procedure. I reviewed the risks including but not limited to bleeding and perforation, as well as the benefits and alternatives. He wants to proceed He does have a history of neck surgery for throat cancer and therefore has limited mobilization of his jaw and is unable to open his mouth fully. I will send him for a preadmission testing so he can be elevated by anesthesia for airway. Coding Level of Care Code Est Pt Level 3 (73681) Diagnoses Colon cancer screening Z12.11
[2023-12-16 12:09] VITALS: BP 144/70; PULSE 91; BMI 20.2
== END 2023-12-16 12:21 | disposition home or self-care (01) ==
PROVIDERS: PCP Registered Nurse; Visit Provider Surgery
DX: Z12.11 Encounter for screening for malignant neoplasm of colon (principal)
CPT/HCPCS: 99213

== ENCOUNTER → 2023-12-16 11:56 | Outpatient (BNVA) | payer OTHER, SELFPAY | PROVIDERS: PCP Registered Nurse; Visit Provider Surgery | DX: Z12.11 Encounter for screening for malignant neoplasm of colon (principal) | CPT/HCPCS: 99212 ==

== ENCOUNTER 2024-08-14 11:00 | Outpatient (AMB) | payer OTHER, SELFPAY ==
--- NOTE | 2024-08-14 11:12 | A.OFFVIS_ITS ---
Vital Signs 08/14/24 11:13 Height 5 ft 9 in Weight 135 lb BMI 19.9 BP 122/59 L Blood Pressure Location Rt brachial Position Sitting Pulse 86 Intake Visit Reasons: Colonoscopy discussion Intake Note: This patient presents to discuss colonoscopy. Pt c/o; reports no complaints at this time. 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 Accompanied by: Self / Same As Patient Allergies Adhesive Tape Allergy (Unknown, Uncoded 08/14/24 11:20) rash clonidine Allergy (Unknown, Uncoded 08/14/24 11:20) Unknown miralax Allergy (Uncoded 08/14/24 11:20) Rash Medication List - Last Reconciled 08/14/24 by Marcial Metzger MD acetaminophen 960 mg feeding tube Q6H PRN cetirizine 10 mg feeding tube DAILY PRN famotidine 40 mg feeding tube DAILY PRN lactose-reduced food with fibr ea levothyroxine (Tirosint-Stephy) 88 mcg feeding tube DAILY lidocaine HCl 4% (Aspercreme (lidocaine HCl)) 1 appl topical TID mirtazapine 15 mg feeding tube BEDTIME naloxone 4 mg/actuation (Narcan) 1 spray intranasal DAILY PRN ondansetron 4 mg feeding tube Q8-10H PRN oxycodone 10 mg feeding tube QID PRN polyethylene glycol 3350 17 grams PO DAILY sennosides-docusate sodium 8.6-50 mg (Senna Plus) 1 tab-cap PO BID PRN sodium,potassium,mag sulfates 17.5-3.13-1.6 gram (Suprep Bowel Prep Kit) DILUTE; drink full amount early evening before AND next morning at least 2 hr before procedure; follow w 960 mL water PO HPI HPI Colonoscopy discussion: Details: I had seen Romario in November 2023. At that time, he had a positive Cologuard test. I had scheduled him for a colonoscopy therefore. However, he says that he did not proceed with this. He says that he has feels that he will not be able to tolerate bowel prep or being NPO. He has a PEG tube in place where he says that he needs to be fed about the day. He also has a history of neck dissection for oral cancer. and is unable to open his mouth well nor good oral intake. He denies any abdominal pain except when he is not feeding via the PEG tube. 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 Mother No problems noted. Family/Other Breast cancer Sister Stomach cancer Social History Unable to assess alcohol history related to: Unknown Alcohol intake: never Patient Tobacco Use Status: Former Tobacco user Current occupational status: unemployed Current occupation: right handed Review of Systems Const Denies chills and Denies fever(s) Card Denies chest pain Resp Denies cough GI Details: Has a PEG tube in place Denies hematochezia and Denies constipation Physical Exam Vital Signs: Last Vital Signs Pulse 86 08/14/24 11:13 BP 122/59 L 08/14/24 11:13 BMI result Body Mass Index 19.9 Const General: comfortable and no acute distress Neck Other: Neck deformity from previous neck dissection for his oral cancer; he is unable to open his mouth well Resp Effort & Inspection: normal respiratory effort GI Other: Peg tube in place Palpation (GI): Soft to palpation, not firm, nontender and no guarding Assessment & Plan Assessment & Plan (1) Positive colorectal cancer screening using Cologuard test: Code(s): R19.5 - Other fecal abnormalities Category: Medical Plan: He states that he did not go ahead with this colonoscopy as he does not feel he is we will be able to tolerate preparation for this. He says that he is unable to be NPO for several hours not be on PEG tube feeds for several hours as he develops severe pain from hunger I did explain the option of doing a CT scan with oral contrast to see if there were any lesions that we can identify. He says he can try to do this. He does not want to proceed with a colonoscopy at this time. He understands the implications of having a positive Cologuard test. Orders: Orders CT abdomen pelvis wo IV con 08/14/24 R19.5 - Other fecal abnormalities Coding Level of Care Code Est Pt Level 3 (70450) Diagnoses Positive colorectal cancer screening using Cologuard test R19.5
[2024-08-14 11:13] VITALS: BP 122/59; PULSE 86; BMI 19.9
== END 2024-08-14 12:42 | disposition home or self-care (01) ==
PROVIDERS: PCP Registered Nurse; Visit Provider Surgery
DX: R19.5 Other fecal abnormalities (principal)
CPT/HCPCS: 99213

== ENCOUNTER → 2024-08-14 11:00 | Outpatient (BNVA) | payer OTHER, SELFPAY | PROVIDERS: PCP Registered Nurse; Visit Provider Surgery | DX: R19.5 Other fecal abnormalities (principal); Z96.89 Presence of other specified functional implants | CPT/HCPCS: 99212 ==

== ENCOUNTER 2024-10-19 10:53 | Outpatient (REF) | payer OTHER, SELFPAY ==
--- NOTE | ~2024-10-19 | XR_ITS ---
CLINICAL HISTORY: constipation Single view abdomen: Comparison: CT 11/09/2021 Findings: There is a gastrostomy tube within left upper quadrant. There is moderate to large colonic fecal load. Nondistended small bowel. There are bibasilar pulmonary infiltrates [id number]-right. IMPRESSION: Moderate to large colonic fecal load likely fecal impaction Gastrostomy tube within the left upper quadrant Bibasilar pulmonary infiltrates suspicious for pneumonia This document has been electronically signed by: Yossi Ferro MD on 10/20/2024 07:33:52
--- NOTE | ~2024-10-19 | XR_ITS ---
CLINICAL HISTORY: constipation 2 view chest x-ray Comparison: Chest radiograph 01/11/2018 Findings: There are new multifocal bilateral pulmonary infiltrates with pulmonary infiltrates within bilateral upper and lower lobes. There is right perihilar consolidation. Heart size is normal. No visualized pleural effusions No acute fracture. IMPRESSION: Multifocal bilateral pneumonia This document has been electronically signed by: Yossi Ferro MD on 10/20/2024 07:16:59
== END 2024-10-19 10:54 | disposition home or self-care (01) ==
LOC: HO.XRAY 10:53
PROVIDERS: PCP Registered Nurse; Visit Provider Registered Nurse
DX: K59.00 Constipation, unspecified (principal)
CPT/HCPCS: 71046; 74019

== ENCOUNTER → 2024-10-19 11:00 | Outpatient (BNV) | payer OTHER, SELFPAY | PROVIDERS: PCP Registered Nurse; Visit Provider Radiology Diagnostic Radiology | DX: K56.41 Fecal impaction (principal); Z93.1 Gastrostomy status; J18.9 Pneumonia, unspecified organism | CPT/HCPCS: 71046; 74019 ==

== ENCOUNTER 2024-11-17 14:52 | Outpatient (REF) | payer OTHER, SELFPAY ==
--- NOTE | ~2024-11-17 | CT_ITS ---
CLINICAL HISTORY: R19.5 - Other fecal abnormalities CT abdomen and pelvis without contrast Comparison: 11/09/2021 Findings: There is left lower lobe bronchiectasis with associated scarring or subsegmental atelectasis.. The gallbladder and solid organs are within normal limits. Is a punctate left renal parenchymal calculus. No bowel obstruction, pneumoperitoneum, or pneumatosis. There is questionable focal lesion in the mid rectum with evaluation limited due to incomplete distention and opacification. Appropriate further evaluation likely in consultation with gastroenterology, recommended. Pelvic contents unremarkable. Normal appendix. The bones are intact. IMPRESSION: Questionable rectal mass versus artifact from incomplete distention. Appropriate follow-up recommended likely in consultation with gastroenterology.. This document has been electronically signed by: Gold Valdes MD on 11/20/2024 08:53:04
[2024-11-17] MEDS: Barium Sulfate Oral (Vanilla) 450 ML ORAL.SUSP 900 ML PO (16:54)
== END 2024-11-17 14:53 | disposition home or self-care (01) ==
LOC: HO.CT 14:52
PROVIDERS: PCP Registered Nurse; Visit Provider Surgery
DX: R19.5 Other fecal abnormalities (principal)
CPT/HCPCS: 74176

== ENCOUNTER → 2024-11-17 14:56 | Outpatient (BNV) | payer OTHER, SELFPAY | PROVIDERS: PCP Registered Nurse; Visit Provider Specialist | DX: R19.5 Other fecal abnormalities (principal) | CPT/HCPCS: 74176 ==

== ENCOUNTER 2024-11-27 10:06 | Outpatient (REF) | payer OTHER, SELFPAY ==
--- NOTE | ~2024-11-27 | XR_ITS ---
EXAMINATION: XR CHEST CLINICAL INFORMATION: PRODUCTIVE COUGH,HX OF PNEUMONIA, COMPARE TO 10/19/24 STUDY COMPARISON: October 19, 2024. TECHNIQUE: 2 views of the chest were obtained. FINDINGS: Pulmonary reticular nodular pattern. Patchy opacity right perihilar and the periphery of the right upper thorax. Blunting of the costophrenic angles bilaterally. Wedge-shaped opacity in the right middle lobe. No pneumothorax. Multilevel thoracic and upper lumbar spondylosis. Heart silhouette size is normal. XR/XR chest 2V IMPRESSION: Acute on chronic airspace disease. Bilateral small pleural effusions versus pleural thickening. Recommend follow-up on until resolution, since underlying neoplasm cannot be excluded. Electronically signed by: Vitaly León MD 11/27/2024 10:50 AM RUBEN
== END 2024-11-27 10:07 | disposition home or self-care (01) ==
LOC: HO.XRAY 10:06
PROVIDERS: PCP Registered Nurse; Visit Provider Registered Nurse
DX: R13.11 Dysphagia, oral phase (principal); R05.8 Other specified cough; Z87.01 Personal history of pneumonia (recurrent)
CPT/HCPCS: 71046

== ENCOUNTER → 2024-11-27 10:10 | Outpatient (BNV) | payer OTHER, SELFPAY | PROVIDERS: PCP Registered Nurse; Visit Provider Radiology Diagnostic Radiology | DX: J90 Pleural effusion, not elsewhere classified (principal) | CPT/HCPCS: 71046 ==

== ENCOUNTER 2025-02-06 15:39 | Outpatient (REF) | payer OTHER, SELFPAY ==
--- NOTE | ~2025-02-06 | XR_ITS ---
CLINICAL HISTORY: COUGH 2 view chest x-ray. Comparison: CT/SR - CT CHEST W IV CON - 02/06/25 16:13 EDT CR - XR CHEST 2V - 10/19/24 12:25 EST Findings: Bilateral reticulonodular infiltrate appears similar and most consistent with chronic atypical infection. Chronic atelectasis/scarring with traction bronchiectasis in the right middle lobe and inferior lingula appears grossly unchanged and better visualized on the CT. There is no effusion. There is stable biapical pleural-parenchymal scarring [id number]-left. Cardiomediastinal silhouette is within normal limits. IMPRESSION: Findings as above. This document has been electronically signed by: Larry Lopez MD on 02/08/2025 04:15:21
--- NOTE | ~2025-02-06 | CT_ITS ---
CLINICAL HISTORY: COUGH CT chest with contrast Comparison: CR - XR CHEST 2V - 02/06/25 16:[address]/SR - CT ABDOMEN PELVIS WO IV CON - 11/17/24 16:56 EST CR - XR CHEST 2V - 10/19/24 12:[address]/REG/SR - CT CHEST WO CON - 11/09/21 14:59 EST Findings: There is mild coronary artery disease. There is a small pericardial effusion. The visualized thyroid and mediastinum are unremarkable. There are increasing bilateral reticular and nodular opacities particularly in the right upper lobe and left lower lobe. There is interval development of worsening consolidation/atelectasis in the right middle lobe with associated bronchiectasis. Lingular atelectasis and bronchiectasis is also noted. Interval development of tree-in-bud opacities at the right medial lung base. The bronchial miranda demonstrate normal thickness. There is a partially seen indeterminate hypodense lesion in the midpole of the right kidney. This was slightly radiodense to the renal parenchyma on the prior noncontrast CT scan of the abdomen pelvis dated 11/17/2024. No acute fractures. IMPRESSION: 1. Worsening reticular and nodular opacities primarily in the lower lobes with interval development of worsening consolidation/atelectasis in the right middle lobe. Bronchiectasis is noted in the right middle lobe and lingular segment where there is also atelectasis. Findings are suspicious for bronchiolitis. 2. Indeterminate partially seen lesion right kidney. Please correlate with dedicated renal protocol CT scan. This document has been electronically signed by: José Lutz MD on 02/08/2025 10:25:14
[2025-02-06] MEDS: iohexoL 350 MG/ML 100 ML INFUS..BTL IV (16:26)
[2025-02-07 09:54] LABS: Creatinine POC 0.5 mg/dL (0.5-1.4); GFR POC > 60
== END 2025-02-06 15:40 | disposition home or self-care (01) ==
LOC: HO.CT 15:39
PROVIDERS: PCP Internal Medicine; Visit Provider Registered Nurse
DX: R05.8 Other specified cough (principal); J90 Pleural effusion, not elsewhere classified
CPT/HCPCS: 71046; 71260; 82565; Q9967

== ENCOUNTER → 2025-02-06 16:18 | Outpatient (BNV) | payer OTHER, SELFPAY | PROVIDERS: PCP Internal Medicine; Visit Provider Radiology Diagnostic Radiology | DX: J47.9 Bronchiectasis, uncomplicated (principal); R91.8 Other nonspecific abnormal finding of lung field; N28.89 Other specified disorders of kidney and ureter; R05.9 Cough, unspecified | CPT/HCPCS: 71046; 71260 ==

== ENCOUNTER 2025-04-21 10:09 | Inpatient (IN) | payer OTHER, SELFPAY ==
[2025-04-21] VITALS (10 sets, daily range): BP systolic 112–145; BP diastolic 48–71; PULSE 100–112; RESP 18–28; TEMP 36.4–36.8; O2SAT 73–99; BMI 15.8; BMI 15.5
--- NOTE | ~2025-04-21 | CT_ITS ---
CLINICAL HISTORY: abdominal pain, R O SBO CT abdomen and pelvis without contrast Comparison: CT/SR - CT ABDOMEN PELVIS WO IV CON - 11/17/24 16:56 EST Findings: Lung bases demonstrate increased bibasilar ground-glass density and, airway thickening and regions of endobronchial plugging. The liver, gallbladder, spleen, adrenal glands and pancreas are unremarkable. Kidneys, ureters and bladder demonstrate no acute process. Well-positioned gastric tube. No bowel obstruction. Mild fecal retention. Moderate circumferential rectal thickening with moderate fecal retention in the rectum. Severe atherosclerotic disease. Chronic changes seen within the spine. Impression: Moderate circumferential rectal wall thickening with fecal retention at this level. Correlation for stercoral colitis Interval increase in bibasilar ground-glass densities, airway thickening and endobronchial plugging. Correlation for any active pulmonary infection. This document has been electronically signed by: Saran Banda MD on 04/21/2025 13:43:00
--- NOTE | ~2025-04-21 | XR_ITS ---
CLINICAL HISTORY: abd pain --- Additional Notes or Special Instructions: busy ([id number])-[id number] 1 view chest x-ray Comparison: CR - XR CHEST 2V - 02/06/25 16:26 EDT Findings: The lungs exhibit multifocal right-sided consolidation superimposed upon chronic interstitial change. No acute fracture. IMPRESSION: Multifocal pneumonia on the right. Follow-up recommended to ensure resolution. This document has been electronically signed by: Saran Banda MD on 04/21/2025 15:37:26
--- NOTE | 2025-04-21 11:54 | ED_ITS ---
HPI - Abdominal Pain General Chief Complaint: Abdominal Pain Stated Complaint: cath blockage Time Seen by Provider: 04/21/25 10:50 Source: patient, family ( sister) and structures technician Mode of arrival: ambulatory Limitations: no limitations History of Present Illness ED Provider: DR. Morfin HPI narrative: a 64-year-old male with history of throat /ENT cancer s/p surgery, who does not take food or fluids by mouth patient depends on G-tube that patient confirm has been working okay patient came in with some abdominal pain and rectal pressure, unable to have bowel movement for the last 4 days. Related Data Home Medications ?Medication ?Instructions ?Recorded ?Confirmed oxycodone 10 mg tablet 10 mg feeding tube QID PRN P ain 11/11/20 08/14/24 polyethylene glycol 3350 17 gram 17 g PO DAILY 1 08/14/24 oral powder packet acetaminophen 160 mg/5 mL (5 mL) 960 mg feeding tube Q 6H PRN Pain 01/21/24 08/14/24 oral solution cetirizine 5 mg/5 mL oral solution 10 mg feeding tube DAILY PRN 01/21/24 08/14/24 Allergy Symptoms famotidine 40 mg/5 mL (8 mg/mL) 40 mg feeding tube THOR LY PRN 01/21/24 08/14/24 oral suspension Heartburn lactose-reduced food with fiber ea 01/21/24 08/14/24 oral liquid levothyroxine 88 mcg/mL oral 88 mcg feeding tube DAILY 01/21/24 08/14/24 solution (Tirosint-Stephy) lidocaine HCl 4 % topical cream 1 appl topical TID 03/1008/14/24 (Aspercreme (lidocaine HCl)) mirtazapine 15 mg tablet 15 mg feeding tube BEDTIME 0 01/21/24 08/14/24 naloxone 4 mg/actuation nasal 1 spray intranasal DAILY PRN 01/21/24 08/14/24 spray (Narcan) Opioid Overdose ondansetron 4 mg disintegrating 4 mg feeding tube Q8-1 0H PRN 01/21/24 08/14/24 tablet nausea and vomiting sennosides 8.6 mg-docusate sodium 1 tab-cap PO BID PRN Constipation 01/21/24 08/14/24 50 mg tablet (Senna Plus) Previous Rx's ?Medication ?Instructions ?Recorded sodium,potassium,mag sulfates 17.5 See Rx Instructions PO .COMPLEX 12/24/23 gram-3.13 gram-1.6 gram oral soln #354 mL (Suprep Bowel Prep Kit) Allergies Allergy/AdvReac Type Severity Reaction Status Date / Time Adhesive Tape Allergy Unknown rash Uncoded 04/21/25 10:19 clonidine Allergy Unknown Unknown Uncoded 04/21/25 10:19 miralax Allergy Rash Uncoded 04/21/25 10:19 Review of Systems Review of Systems All other systems are reviewed and are negative Constitutional: Reports as per HPI and Reports no additional constitutional complaints Eyes: Reports as per HPI and Reports no additional eye complaints Reports system reviewed and no additional complaints, except as documented Cardiovascular: Reports as per HPI and Reports no additional cardiovascular complaints Respiratory: Reports as per HPI and Reports no additional respiratory complaints Gastrointestinal: Reports as per HPI and Reports no additional gastrointestinal complaints Genitourinary: Reports no additional female genitourinary complaints Musculoskeletal: Reports no additional musculoskeletal complaints Skin/Breast: Reports system reviewed and no additional complaints, except as docu Psychiatric: Reports no additional psychiatric complaints Endocrine: Reports no additional endocrine complaints Hematologic/Lymphatic: Reports no additional hematologic/lymphatic complaints Allergic/Immunologic: Reports no additional allergic/immunologic complaints Reports system reviewed and no additional complaints, except as documented and Reports Abnormal speech present [facility] Past Medical History Medical History Positive colorectal cancer screening using Cologuard test Angioedema Alcohol dependence in remission Depression Thyroid disease 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 Mother No problems noted. Family/Other Breast cancer Sister Stomach cancer Social History Social History Unable to assess alcohol history related to: Unknown Alcohol intake: never Patient Tobacco Use Status: Former Tobacco user Smoked in Last 30 Days: No Use of substances other than those prescribed or required for medical reasons: No Advance Directives: No Advance Directives Information Provided: No Current occupational status: unemployed Current occupation: right handed Physical Exam ED Vital Signs: Vital Signs - 24 hr 04/21/25 10:17 Temperature 97.6 F Pulse Rate 107 H Respiratory Rate 18 Blood Pressure 117/61 Pulse Oximetry 96 Oxygen Delivery Method Room Air BMI result Body Mass Index 15.8 Vital signs have been reviewed and appear to be correct. Blood pressure elevated. Heart rate normal. Respiratory rate normal. Temperature normal. Oxygen saturation normal. Appearance: cachectic, Alert. Oriented X3. No acute distress. Head: Normal external exam. Normocephalic. Atraumatic. No [place] signs noted. No raccoon eyes noted Eyes: PERRLA. EOMI. Conjunctiva and sclera normal. Eyelids normal. ENT: TM's Normal. Pharynx normal. Uvula midline. Moist mucous membranes. No trismus noted. No drooling noted. No muffled voice noted. Neck: Normal inspection. Neck supple. FROM. No adenopathy. Thyroid Normal. No meningeal signs. No neck mass noted. CVS: Normal heart rate and rhythm. Heart sound normal. No murmurs noted. Pulses normal throughout. Respiratory: No respiratory distress.Decreased breathing sounds bilaterally, cracker sounds on right lung field, No wheezes/rales/rhonchi noted. Chest nontender. No accessory muscle usage noted or decreased air movement noted. Abdomen: Soft and nontender. Bowel sounds normal in all 4 quadrants. No distention noted. No organomegaly noted. No visible injury noted. Rectal exam: Hard stool in the vault. Back: No CVA tenderness. Full range of motion noted. Skin: Skin warm and dry. Normal skin color. Normal skin turgor. No rashes/lesions/lacerations noted. Extremities: No lower extremity edema. Extremities exhibit normal range of motion. Extremities nontender. Neuro: Oriented X 3. Cranial nerve exam: II-XII are grossly intact No motor deficit. No sensory deficit. Reflexes normal. Course Reevaluation(s) Reevaluation #1: 1. Patient had bowel movement in the emergency department after manual disimpaction and enema. 2.significant bandemia, no sepsis, multilobar pneumonia on x-ray, will admit for IV antibiotic Time: 15:58 Medical Decision Making Differential Diagnosis Differential Diagnoses: The differential diagnosis associated with the presentation includes ( pneumonia, pneumothorax, pleural effusion, small-bowel obstruction, constipation, UTI, electrolyte derangement, severe anemia.) Admission/Observation Consideration of admission/observation: Escalation of care including admission/observation considered Consult Healthcare Provider Management of the patient was discussed with: Hospitalist ( Dr. Coleman) Lab Data MDM Lab Attestation statement: I reviewed the patient's lab results. 04/21/25 13:18 04/21/25 13:18 Labs: Lab Results 04/21/25 04/21/25 Range/Units 13:18 14:44 WBC 6.8 (4.8-10.8) X10*3/uL RBC 3.60 L (4.60-5.80) X10*6/uL Hgb 10.3 L D (14.0-18.0) g/dl Hct 30.3 L D (42.0-52.0) % MCV 84.2 (80.0-98.0) fL MCH 28.6 (27.0-33.0) pg MCHC 34.0 (31.0-36.0) g/dl RDW 15.2 (11.0-16.0) % Plt Count 225 D (160-400) X10*3/uL MPV 9.1 L (9.4-12.4) fL Immature Gran % (Auto) Cancelled Neut % (Auto) Cancelled Lymph % (Auto) Cancelled [place] % (Auto) Cancelled Eos % (Auto) Cancelled Baso % (Auto) Cancelled Lymph # (Auto) Cancelled [place] # (Auto) Cancelled Eos # (Auto) Cancelled Baso # (Auto) Cancelled Abs Immat Gran (auto) Cancelled Absolute Neuts (auto) Cancelled Absolute Nucleated RBC 0.000 (0.0-0.012) X10*3/uL Nucleated RBC % (auto) 0.0 (0.0-0.2) /100WBC Neutrophils % (Manual) 58 (45-73) % Band Neutrophils % 31 H (3-5) % Lymphocytes % (Manual) 4 L (20-40) % Monocytes % (Manual) 7 (2-11) % Abs Neuts (Manual) 6.1 (2.0-8.3) X10*3/uL Lymphocytes # (Manual) 0.3 L (1.2-4.9) X10*3/uL Monocytes # (Manual) 0.5 (0.1-1.2) X10*3/uL Toxic Granulation PRESENT Dohle Bodies PRESENT Platelet Estimate NORMAL (NORMAL) Plt Morphology Comment NORMAL RBC Morphology NOTED Sodium 130 L (135-145) mmol/L Potassium 4.4 (3.3-5.1) mmol/L Chloride 91 L (96-108) mmol/L Carbon Dioxide 30 H (22-29) mmol/L Anion Gap 13 (12-20) BUN 13 (9-16) mg/dL Creatinine 0.55 (0.5-1.4) mg/dL Estim Creat Clear Calc 92.0 Estimated GFR > 60 Random Glucose 136 H (60-115) mg/dL Calcium 9.1 D (8.4-10.2) mg/dL Urine Color Dark Yellow Urine Appearance Clear Urine pH 5.5 (5.0-9.0) Ur Specific [place] 1.025 (1.005-1.025) Urine Protein 30 (1+) H (Neg-Trace) mg/dL Urine Glucose (UA) Negative (Negative) mg/dL Urine Ketones Trace (Negative) mg/dL Urine Blood Negative (Negative) Urine Nitrite Negative (Negative) Ur Leukocyte Esterase Small (1+) H (Negative) Urine RBC 0-2 (0-2) /HPF Urine WBC 0-5 (0-5) /HPF Ur Squamous Epith Cells 0-2 (0-2) /HPF Urine Bacteria None Seen (None Seen) Hyaline Casts 0-2 (0-2) /LPF Independent Interpretation I performed an independent interpretation of an: Plain X-Ray ( chest:Multifocal pneumonia on the right. Follow-up recommended to ensure resolution.) Radiology Impression Discussion of test interpretation with radiology: I have reviewed the radiologist's reading. Medications Administered Discontinued Medications Generic Name Dose Route Start Last Admin Trade Name Freq PRN Reason Stop Dose Admin Sodium Chloride 1,000 mls @ 999 mls/hr 04/21/25 13:49 04/21/25 14:01 Ns IV 04/21/25 14:49 999 mls/hr .Q1H1M ONE Administration Mineral Oil 133 ml 04/21/25 11:47 04/21/25 12:17 Mineral Oil Enema 133 Ml Enema OH 04/21/25 11:48 133 ml ONCE ONE Administration Polyethylene Glycol 17 gm 04/21/25 13:49 04/21/25 14:00 Polyethylene Glycol 3350 17 Gm Powd.Pack PO 04/21/25 13:50 17 gm ONCE ONE Administration Discharge Plan Discharge Clinical Impression: Pneumonia, Constipation, Cancer cachexia Patient Disposition: Admitted As Inpatient Print Language: Armenian
[2025-04-21 13:23] LABS: Hematocrit 30.3 % (42.0-52.0); Hemoglobin 10.3 g/dl (14.0-18.0); Mean Corpuscular HGB Conc 34.0 g/dl (31.0-36.0); Mean Corpuscular Hemoglobin 28.6 pg (27.0-33.0); Mean Corpuscular Volume 84.2 fL (80.0-98.0); NRBC Abs Auto 0.000 X10*3/uL (0.0-0.012); NRBC Pct Auto 0.0 /100WBC (0.0-0.2); Platelet Count 225 X10*3/uL (160-400); Red Blood Count 3.60 X10*6/uL (4.60-5.80); White Blood Count 6.8 X10*3/uL (4.8-10.8)
[2025-04-21 13:39] LABS: Anion Gap 13 (12-20); Blood Urea Nitrogen 13 mg/dL (9-16); Calcium 9.1 mg/dL (8.4-10.2); Carbon Dioxide 30 mmol/L (22-29); Chloride 91 mmol/L (96-108); Creatinine Clr Calc Pharmacy 92.0; Estimated Glomerular Filt Rate > 60; Potassium 4.4 mmol/L (3.3-5.1); Sodium 130 mmol/L (135-145)
[2025-04-21 13:49] LABS: Neutrophils Percent Manual 58 % (45-73)
[2025-04-21 13:54] LABS: Band Neutrophils Percent 31 % (3-5); Dohle Bodies PRESENT; Lymphocytes Absolute Manual 0.3 X10*3/uL (1.2-4.9); Lymphocytes Percent Manual 4 % (20-40); Monocytes Absolute Manual 0.5 X10*3/uL (0.1-1.2); Monocytes Percent Manual 7 % (2-11); Neutrophils Absolute Manual 6.1 X10*3/uL (2.0-8.3); RBC Morphology NOTED; Toxic Granulation PRESENT
[2025-04-21 14:50] LABS: Appearance Urine Clear; Glucose Urine UA Negative (Negative); PH 5.5 (5.0-9.0); Specific Gravity - Urine 1.025 (1.005-1.025); UMIC TRIGGER UACC YES
[2025-04-21 15:06] LABS: UACC Culture Trigger YES
--- NOTE | 2025-04-21 16:06 | P.HPHOSP_ITS ---
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 Patient does not take any oral food or fluid it has a patent G-tube which he reports is working at this point. Patient lives alone but does have family supports, he ambulates with a cane. He did report some abdominal pain and rectal pressure and was secondary to severe constipation, he was disimpacted in the ED. patient reported that he has not had a bowel movement for about 4 days and has felt generally unwell. He denied fever, chills, nausea, vomiting, diarrhea, recent travel, sick contacts. Chest x-ray showed multifocal pneumonia on the right side, abdominal CT showing stercoral colitis. Sodium was noted to be 130 and vital signs stable. The patient received enema, MiraLax, IV fluids, Rocephin and doxycycline in the ER. He will be admitted for further management and treatment of severe constipation and pneumonia Review of Systems 2 Review of Systems: Denies any recent fever chills or decrease in appetite respiratory denies any shortness of breath or cough cardiovascular denied chest pain gastrointestinal denies any dysphagia abdominal pain nausea vomiting or diarrhea genitourinary denies any dysuria frequency or hematuria musculoskeletal denies any joint pain or swelling neuropsych denies any weakness or seizures all other systems reviewed are negative [facility] Medical History Positive colorectal cancer screening using Cologuard test Angioedema Alcohol dependence in remission Depression Thyroid disease 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 Mother No problems noted. Family/Other Breast cancer Sister Stomach cancer Surgical History Hx of neck surgery Hx of bilateral cataract extraction Social History Household Members: None Housing: Apartment Do you presently have visiting nurse or other home services: No Unable to assess alcohol history related to: Unknown Alcohol intake: never Patient Tobacco Use Status: Former Tobacco user Smoked in Last 30 Days: No Use of substances other than those prescribed or required for medical reasons: No Currently Displaying Signs/Symptoms of Drug Intoxication Withdrawal: No Have you been hit, kicked, punched, or otherwise hurt by someone within the past year? If so, by whom?: No Do you feel safe in your current relationship?: Yes Is there a partner from a previous relationship who is making you feel unsafe now?: No Are you made to feel afraid or neglected: No Spiritual Healthcare Practices: [facility] Advance Directives: No Advance Directives Information Provided: No Advance Directives on File: No Do you have a plan to hurt others: No Plan Recently lost weight without trying: Yes How much weight loss: 2-13 pounds Eating poorly because of decreased appetite: Yes Nutrition screen score: 4 Nutrition Risks: On aspiration precautions and Receiving home tube feeding or CPN Poor oral hygiene: No Current occupational status: unemployed Current occupation: right handed Meds Allergies Allergy/AdvReac Type Severity Reaction Status Date / Time Adhesive Tape Allergy Unknown rash Uncoded 04/21/25 10:19 clonidine Allergy Unknown Unknown Uncoded 04/21/25 10:19 miralax Allergy Rash Uncoded 04/21/25 10:19 Active Medications: Current Medications Acetaminophen (Acetaminophen 325 Mg Tablet) 650 mg PO Q6H PRN PRN Reason: Pain, Mild 1-3,fever,headache Calcium Carbonate (Calcium Carbonate 750 Mg Tab.Chew) 750 mg PO Q4H PRN PRN Reason: Heartburn Ceftriaxone Sodium (Ceftriaxone Sodium 1 Gm Vial) 1 gm IVPUSH Q24H LEATHA Enoxaparin Sodium (Enoxaparin Sodium 40 Mg/0.4 Ml Syringe) 40 mg SUBCUT Q24H LEATHA Guaifenesin/Dextromethorphan (Guaifenesin Dm 100/10/5 Ml 5 Ml Syrup) 5 ml PO Q4H PRN PRN Reason: Cough Doxycycline Hyclate 100 mg/ (Sodium Chloride) 250 mls @ 166.67 mls/hr IV ONCE ONE Stop: 04/21/25 17:22 Azithromycin 500 mg/ Sodium (Chloride) 250 mls @ 125 mls/hr IV Q24H LEATHA Magnesium Hydroxide (Milk Of Magnesia 30 Ml Oral.Susp) 30 ml PO DAILY PRN PRN Reason: Constipation Melatonin (Melatonin 3 Mg Tablet) 6 mg PO BEDTIME PRN PRN Reason: Insomnia Ondansetron HCl (Ondansetron Hcl 4 Mg/2 Ml Vial) 4 mg IVPUSH Q8H PRN PRN Reason: Nausea and Vomiting Sodium Chloride (0.9 % Sodium Chloride Flush 3 Ml Syringe) 3 ml IVFLUSH QSHIFT [facility] Medications ?Medication ?Instructions ?Recorded ?Confirmed ?Last Taken ?Type oxycodone 10 mg tablet 10 mg feeding tube Q4H PRN P ain 11/11/20 04/21/25 12/09/20 09:30 History polyethylene glycol 3350 17 gram 17 g PO DAILY 1 04/21/25 Unknown History oral powder packet acetaminophen 160 mg/5 mL (5 mL) 960 mg feeding tube Q 6H PRN Pain 01/21/24 04/22/25 Unknown History oral solution cetirizine 5 mg/5 mL oral solution 10 mg feeding tube DAILY PRN 01/21/24 04/21/25 Unknown History Allergy Symptoms famotidine 40 mg/5 mL (8 mg/mL) 40 mg feeding tube THOR LY PRN 01/21/24 08/14/24 Unknown History oral suspension Heartburn mirtazapine 15 mg tablet 15 mg feeding tube BEDTIME 0 01/21/24 08/14/24 Unknown History naloxone 4 mg/actuation nasal 1 spray intranasal DAILY PRN 01/21/24 04/21/25 Unknown History spray (Narcan) Opioid Overdose cyclobenzaprine 5 mg tablet 5 mg PO TID PRN neck pain 04/21/25 04/21/25 Unknown History fluoxetine 20 mg/5 mL (4 mg/mL) 10 mg feeding tube THOR LY 04/21/25 04/21/25 Unknown History oral solution levothyroxine 100 mcg/mL oral 100 mcg feeding tube THOR LY@0600 04/21/25 04/21/25 Unknown History solution (Tirosint-Stephy) sennosides 8.8 mg/5 mL oral syrup 5 ml feeding tube BI D PRN 04/21/25 04/21/25 Unknown History (senna) constipation sodium chloride 7 % for 4 ml inhalation BID 04/21/25 04/21/25 Unknown History nebulization Physical Exam 2 Vital Signs and Narrative: Vital Signs: Last Vital Signs Temp 97.6 F 04/21/25 10:17 Pulse 107 H 04/21/25 10:17 Resp 18 04/21/25 10:17 BP 117/61 04/21/25 10:17 Pulse Ox 96 04/21/25 10:17 O2 Del Method Room Air 04/21/25 10:17 BMI result Body Mass Index 15.8 Appearing in no acute distress head is normocephalic atraumatic eyes pupils are PERRLA sclera is anicteric mouth throat mucous membranes are intact and moist neck is supple no lymphadenopathy, no JVD noted lung sounds are clear to auscultation heart regular rate rhythm, clear S1, S2 positive bowel sounds, abdomen is soft, nontender neuro patient is alert x3, no focal deficits Peg tube Results Labs 04/22/25 06:35 04/22/25 06:35 Labs: Laboratory Results - last 24 hr 04/21/25 04/21/25 13:18 14:44 MCV 84.2 MCH 28.6 MCHC 34.0 RDW 15.2 Plt Count 225 D MPV 9.1 L Immature Gran % (Auto) Cancelled Neut % (Auto) Cancelled Lymph % (Auto) Cancelled [place] % (Auto) Cancelled Eos % (Auto) Cancelled Baso % (Auto) Cancelled Lymph # (Auto) Cancelled [place] # (Auto) Cancelled Eos # (Auto) Cancelled Baso # (Auto) Cancelled Abs Immat Gran (auto) Cancelled Absolute Neuts (auto) Cancelled Absolute Nucleated RBC 0.000 Nucleated RBC % (auto) 0.0 Neutrophils % (Manual) 58 Band Neutrophils % 31 H Lymphocytes % (Manual) 4 L Monocytes % (Manual) 7 Abs Neuts (Manual) 6.1 Lymphocytes # (Manual) 0.3 L Monocytes # (Manual) 0.5 Toxic Granulation PRESENT Dohle Bodies PRESENT Platelet Estimate NORMAL Plt Morphology Comment NORMAL RBC Morphology NOTED Anion Gap 13 Estim Creat Clear Calc 92.0 Estimated GFR > 60 Random Glucose 136 H Calcium 9.1 D Urine Color Dark Yellow Urine Appearance Clear Urine pH 5.5 Ur Specific [place] 1.025 Urine Protein 30 (1+) H Urine Glucose (UA) Negative Urine Ketones Trace Urine Blood Negative Urine Nitrite Negative Ur Leukocyte Esterase Small (1+) H Urine RBC 0-2 Urine WBC 0-5 Ur Squamous Epith Cells 0-2 Urine Bacteria None Seen Hyaline Casts 0-2 Assessment and Plan (1) Pneumonia: Status: Acute Plan 64-year-old man admitted secondary to severe constipation and found to have pneumonia Acute hypoxic respiratory failure secondary to Multifocal pneumonia and possible volume overload Question aspiration pneumonia Treat with Rocephin and azithromycin Follow up blood cultures Albuterol as needed Hold off on steroids for now May use supplemental oxygen to keep oxygen saturation greater than 91%. Check BNP in the morning Lasix 20 mg daily added Severe constipation Likely cause of abdominal pain Disempaction in the ED continue bowel regimen Hyponatremia Possibly secondary to dehydration Received IV fluids in the ED, recheck in the morning Normocytic anemia No active bleeding Follow CBC Severe calorie malnutrition. BMI 15.8 High-protein diet On Isosource at home 2 cans 3 times a day, we will give Osmolite 1.5 while inpatient G-tube, nutrition consultation DVT prophylaxis with Lovenox Full code Quality Stroke Does the patient have a stroke diagnosis?: No VTE Prior VTE?: No VTE Risk Level:: Medical - moderate - high VTE Device Contraindication: Treatment Not Indicated VTE Drug Contraindication: N/A - Med Ordered
--- NOTE | 2025-04-21 16:50 | PC.NURSE ---
Obtaining vitals on patient, O2 73 RA. Applied nonrebreather 15L, O2 rechecked 95% RR 25. Patient repositioned in bed, HOB elevated. No respiratory distress noted
[2025-04-21] MEDS: 0.9 % Sodium Chloride Flush 3 ML SYRINGE IVFLUSH ×2 (17:52→23:33)
[2025-04-21] MEDS: Furosemide 20 MG/2 ML VIAL IVPUSH (17:57)
--- NOTE | 2025-04-21 18:39 | PC.NURSE ---
Attempted to titrate patient to oxymask, repositioned with no effect Patient O2 dropped to 86%. Non rebreather placed on patient at 15L 92%
[2025-04-21] MEDS: Albuterol Sulfate (0.083%) 2.5 MG/3 ML VIAL.NEB INHALE (19:11)
--- NOTE | 2025-04-21 19:25 | PC.NURSE ---
this rn assumed care of pt, tube feed set up with dual RN at this time. per provider order, run at 400ml over 1 hour. RT at bedside, pt on 15L oxymax at this time sating 93%. family remains at bedside
--- NOTE | 2025-04-21 20:43 | PC.NURSE ---
pt tube feed completed at this time, pt tolerated well. pt resting in stretcher offers no complaints. documented in i&os.
[2025-04-21] MEDS: Sennosides Oral Syrup 8.8 MG/5 ML PO (23:24)
[2025-04-21] MEDS: oxyCODONE HCl Immed Release 5 MG TABLET PO (23:24)
[2025-04-22] VITALS (13 sets, daily range): BP systolic 91–112; BP diastolic 54–60; PULSE 67–108; RESP 16–18; TEMP 36.1–36.6; O2SAT 88–99
[2025-04-22] MEDS: oxyCODONE HCl Immed Release 5 MG TABLET PO ×3 (06:20→23:48)
[2025-04-22 07:22] LABS: Hematocrit 28.5 % (42.0-52.0); Hemoglobin 9.4 g/dl (14.0-18.0); Mean Corpuscular HGB Conc 33.0 g/dl (31.0-36.0); Mean Corpuscular Hemoglobin 28.3 pg (27.0-33.0); Mean Corpuscular Volume 85.8 fL (80.0-98.0); NRBC Abs Auto 0.000 X10*3/uL (0.0-0.012); NRBC Pct Auto 0.0 /100WBC (0.0-0.2); Platelet Count 224 X10*3/uL (160-400); Red Blood Count 3.32 X10*6/uL (4.60-5.80); White Blood Count 7.0 X10*3/uL (4.8-10.8)
[2025-04-22] MEDS: Albuterol Sulfate (0.083%) 2.5 MG/3 ML VIAL.NEB INHALE ×3 (07:32→20:00)
[2025-04-22 07:42] LABS: Alanine Aminotransferase 33 U/L (0-40); Albumin Level 2.9 g/dL (3.5-5.0); Alkaline Phosphatase 144 U/L (39-117); Anion Gap 11 (12-20); Aspartate Amino Transferase 38 U/L (5-37); Blood Urea Nitrogen 15 mg/dL (9-16); Calcium 8.5 mg/dL (8.4-10.2); Carbon Dioxide 33 mmol/L (22-29); Chloride 93 mmol/L (96-108); Creatinine Clr Calc Pharmacy 81.3; Estimated Glomerular Filt Rate > 60; Potassium 3.6 mmol/L (3.3-5.1); Sodium 133 mmol/L (135-145); Total Protein 6.5 g/dL (6.5-8.0)
[2025-04-22 07:43] LABS: B Type Natriuretic Peptide 85 pg/mL (<100)
[2025-04-22] MEDS: Furosemide 20 MG/2 ML VIAL IVPUSH (08:12)
[2025-04-22] MEDS: 0.9 % Sodium Chloride Flush 3 ML SYRINGE IVFLUSH ×3 (08:14→20:37)
[2025-04-22 08:53] LABS: Chlamydia pneumoniae PCR Not Detected (Not Detect.); Coronavirus 229E PCR Not Detected (Not Detect.); Coronavirus HKU1 PCR Not Detected (Not Detect.); Coronavirus NL63 PCR Not Detected (Not Detect.); Coronavirus OC43 PCR Not Detected (Not Detect.); RSV PCR Not Detected (Not Detect.); Rhino/Enterovirus PCR Not Detected (Not Detect.)
--- NOTE | 2025-04-22 09:34 | HO.PM.IMPN ---
Subjective Subjective Date of Service: 04/22/25 Physical Exam Vital Signs: Vital Signs: Last Vital Signs Temp 97.0 F 04/22/25 07:23 Pulse 67 04/22/25 07:49 Resp 16 04/22/25 07:49 BP 112/56 L 04/22/25 07:23 Pulse Ox 98 04/22/25 07:23 O2 Del Method Oxymask 04/22/25 07:23 O2 Flow Rate 8 04/22/25 07:23 BMI result Body Mass Index 15.5 Objective Data Active Medications Acetaminophen (Acetaminophen 325 Mg Tablet) 650 mg PO Q6H PRN PRN Reason: Pain, Mild 1-3,fever,headache Last Admin: 04/21/25 23:24 Dose: 650 mg Documented By: HAYLEY Albuterol Sulfate (Albuterol Sulfate (0.083%) 2.5 Mg/3 Ml Vial.Neb) 2.5 mg INHALE RQ4H WHILE AWAKE [facility] Last Admin: 04/22/25 07:32 Dose: 2.5 mg Documented By: PARUL Calcium Carbonate (Calcium Carbonate 750 Mg Tab.Chew) 750 mg PO Q4H PRN PRN Reason: Heartburn Ceftriaxone Sodium (Ceftriaxone Sodium 1 Gm Vial) 1 gm IVPUSH Q24H [facility] Last Admin: 04/21/25 18:22 Dose: Not Given Documented By: INEZ Non-Admin Reason: Physician Held Med Enoxaparin Sodium (Enoxaparin Sodium 40 Mg/0.4 Ml Syringe) 40 mg SUBCUT Q24H [facility] Last Admin: 04/21/25 17:52 Dose: 40 mg Documented By: INEZ Furosemide (Furosemide 20 Mg/2 Ml Vial) 20 mg IVPUSH DAILY [facility]; Protocol Last Admin: 04/22/25 08:12 Dose: 20 mg Documented By: DIA Guaifenesin/Dextromethorphan (Guaifenesin Dm 100/10/5 Ml 5 Ml Syrup) 5 ml PO Q4H PRN PRN Reason: Cough Azithromycin 500 mg/ Sodium (Chloride) 250 mls @ 125 mls/hr IV Q24H [facility] Last Admin: 04/21/25 18:22 Dose: Not Given Documented By: INEZ Non-Admin Reason: Physician Held Med Magnesium Hydroxide (Milk Of Magnesia 30 Ml Oral.Susp) 30 ml PO DAILY PRN PRN Reason: Constipation Melatonin (Melatonin 3 Mg Tablet) 6 mg PO BEDTIME PRN PRN Reason: Insomnia Morphine Sulfate (Morphine Sulfate 2 Mg/Ml Cartridge) 1 mg IVPUSH Q4H PRN; Protocol PRN Reason: Pain, Severe (Pain Scale 7-10) Ondansetron HCl (Ondansetron Hcl 4 Mg/2 Ml Vial) 4 mg IVPUSH Q8H PRN PRN Reason: Nausea and Vomiting Oxycodone HCl (Oxycodone Hcl Immed Release 5 Mg Tablet) 5 mg PO Q6H PRN PRN Reason: Pain, Moderate(Pain Scale 4-6) Last Admin: 04/22/25 06:20 Dose: 5 mg Documented By: HAYLEY Senna (Sennosides Oral Syrup 8.8 Mg/5 Ml) 8.8 mg PO BEDTIME [facility] Last Admin: 04/21/25 23:24 Dose: 8.8 mg Documented By: HAYLEY Sodium Chloride (0.9 % Sodium Chloride Flush 3 Ml Syringe) [address] [facility] Last Admin: 04/22/25 08:14 Dose: 3 ml Documented By: DIA Labs 04/22/25 06:35 04/22/25 06:35 Labs: Laboratory Results - last 24 hr 04/21/25 04/21/25 04/22/25 13:18 14:44 06:35 MCV 84.2 85.8 MCH 28.6 28.3 MCHC 34.0 33.0 RDW 15.2 15.1 Plt Count 225 D 224 MPV 9.1 L 9.5 Immature Gran % (Auto) Cancelled Neut % (Auto) Cancelled Lymph % (Auto) Cancelled [place] % (Auto) Cancelled Eos % (Auto) Cancelled Baso % (Auto) Cancelled Lymph # (Auto) Cancelled [place] # (Auto) Cancelled Eos # (Auto) Cancelled Baso # (Auto) Cancelled Abs Immat Gran (auto) Cancelled Absolute Neuts (auto) Cancelled Absolute Nucleated RBC 0.000 0.000 Nucleated RBC % (auto) 0.0 0.0 Neutrophils % (Manual) 58 Band Neutrophils % 31 H Lymphocytes % (Manual) 4 L Monocytes % (Manual) 7 Abs Neuts (Manual) 6.1 Lymphocytes # (Manual) 0.3 L Monocytes # (Manual) 0.5 Toxic Granulation PRESENT Dohle Bodies PRESENT Platelet Estimate NORMAL Plt Morphology Comment NORMAL RBC Morphology NOTED Anion Gap 13 11 L Estim Creat Clear Calc 92.0 81.3 Estimated GFR > 60 > 60 Random Glucose 136 H 112 Calcium 9.1 D 8.5 D Total Bilirubin 1.4 H AST 38 H ALT 33 Alkaline Phosphatase 144 H B-Natriuretic Peptide 85 Total Protein 6.5 Albumin 2.9 L Urine Color Dark Yellow Urine Appearance Clear Urine pH 5.5 Ur Specific [place] 1.025 Urine Protein 30 (1+) H Urine Glucose (UA) Negative Urine Ketones Trace Urine Blood Negative Urine Nitrite Negative Ur Leukocyte Esterase Small (1+) H Urine RBC 0-2 Urine WBC 0-5 Ur Squamous Epith Cells 0-2 Urine Bacteria None Seen Hyaline Casts 0-2 Microbiology Microbiology Results: Microbiology 04/21/25 Unknown Urine Culture - Final Urine clean catch - Clean Catch Midstream Assessment and Plan (1) Constipation: Status: Acute (2) Pneumonia: Status: Acute Plan 64-year-old man admitted secondary to severe constipation and found to have pneumonia Acute hypoxic respiratory failure secondary to Multifocal pneumonia and possible volume overload Question aspiration pneumonia Treat with Rocephin and azithromycin Follow up blood cultures Albuterol as needed Hold off on steroids for now May use supplemental oxygen to keep oxygen saturation greater than 91%. Check BNP in the morning s/p Lasix 20 mg x1, BNP in normal range Severe constipation Likely cause of abdominal pain Disimpaction in the ED continue bowel regimen Hyponatremia. Improving Possibly secondary to dehydration Received IV fluids in the ED, recheck in the morning Normocytic anemia No active bleeding Follow CBC Severe calorie malnutrition. BMI 15.5 High-protein diet On Isosource at home 2 cans 3 times a day, we will give Osmolite 1.5 while inpatient G-tube, nutrition consultation DVT prophylaxis with Lovenox Full code Quality Stroke Does the patient have a stroke diagnosis?: No VTE Prior VTE?: No VTE Risk Level:: Medical - moderate - high VTE Device Contraindication: Treatment Not Indicated VTE Drug Contraindication: N/A - Med Ordered
--- NOTE | 2025-04-22 10:10 | PHA.MEDREC ---
Addendum entered by Rut Knox [facility] 04/23/25 12:13: Called Kely Nieto's office and received medication list. Home med list was updated. Addendum entered by Kandis Lombardo, [facility] 04/22/25 11:10: called [facility], spoke to [facility] who said they did not have record of patient getting famotidine or mirtazipine, so left those off. Original Note: Pharmacy Consult ? Medication Reconciliation Pharmacy has completed the medication reconciliation, tried to speak to patient and family members yesterday none of whom knew med list. [facility] was closed, will follow up this AM to try to get complete list. Will also leave for Wednesday to see if we can reach out to providers office to confirm. Went based off of latest claims for now.
[2025-04-22 10:23] LABS: Influenza A H1 PCR Not Detected (Not Detect.); Influenza A H1-2009 PCR Not Detected (Not Detect.); Influenza A H3 PCR Not Detected (Not Detect.); SARS-CoV-2 PCR Not Detected (Not Detect.)
--- NOTE | 2025-04-22 15:12 | MHC.CM.PN ---
Addendum entered by Jackie Shields 04/22/25 15:21: Patient also has a Bed Trapeze for bed mobility. Original Note: IMM 04/22/25 Male PNA Severe Constipation He lives alone with assist from [employer] and other family members. A new HCP has been documented and scanned into pts EMR. Copies have been provided to the patient. DME Walker, Cane, Scooter and Bed rails, as well as G tube and feeding supplies DP Home resume [employer] services. A referral has been sent to [facility] at the families request.
[2025-04-22] MEDS: Sennosides Oral Syrup 8.8 MG/5 ML PO (20:36)
[2025-04-23] VITALS (11 sets, daily range): BP systolic 92–117; BP diastolic 49–59; PULSE 79–99; RESP 15–20; TEMP 36.1–36.3; O2SAT 94–98; BMI 15.5
[2025-04-23] MEDS: oxyCODONE HCl Immed Release 5 MG TABLET 10 MG PO ×5 (04:35→22:30)
[2025-04-23] MEDS: Albuterol Sulfate (0.083%) 2.5 MG/3 ML VIAL.NEB INHALE ×4 (07:53→19:24)
[2025-04-23] MEDS: FLUoxetine HCl Oral Solution 20 MG/5 ML SOLUTION 10 MG G-TUBE (08:36)
[2025-04-23] MEDS: 0.9 % Sodium Chloride Flush 3 ML SYRINGE IVFLUSH ×3 (08:37→22:25)
--- NOTE | 2025-04-23 11:26 | HO.PM.IMPN ---
Subjective Subjective Date of Service: 04/23/25 Review of Systems Follow up PNA feeling better still coughing Physical Exam Vital Signs: Vital Signs: Last Vital Signs Temp 97.4 F 04/23/25 07:01 Pulse 79 04/23/25 11:13 Resp 15 04/23/25 11:13 BP 94/55 L 04/23/25 07:01 Pulse Ox 97 04/23/25 07:01 O2 Del Method Nasal Cannula 04/23/25 07:01 O2 Flow Rate 1 04/23/25 07:01 BMI result Body Mass Index 15.5 Appearing in no acute distress neck/jaw surgery, cancer, language is difficult to understand lung sounds are clear to auscultation heart regular rate rhythm, clear S1, S2 positive bowel sounds, abdomen is soft, nontender neuro patient is alert x3, no focal deficits Objective Data Active Medications Acetaminophen (Acetaminophen 325 Mg Tablet) 650 mg PO Q6H PRN PRN Reason: Pain, Mild 1-3,fever,headache Last Admin: 04/23/25 05:48 Dose: 650 mg Documented By: FLO Albuterol Sulfate (Albuterol Sulfate (0.083%) 2.5 Mg/3 Ml Vial.Neb) 2.5 mg INHALE RQ4H WHILE AWAKE [facility] Last Admin: 04/23/25 11:12 Dose: 2.5 mg Documented By: JOSHUA Calcium Carbonate (Calcium Carbonate 750 Mg Tab.Chew) 750 mg PO Q4H PRN PRN Reason: Heartburn Ceftriaxone Sodium (Ceftriaxone Sodium 1 Gm Vial) 1 gm IVPUSH Q24H [facility] Last Admin: 04/22/25 16:45 Dose: 1 gm Documented By: DIA Cyclobenzaprine HCl (Cyclobenzaprine Hcl 5 Mg Tablet) 5 mg PO TID PRN PRN Reason: neck pain Enoxaparin Sodium (Enoxaparin Sodium 40 Mg/0.4 Ml Syringe) 40 mg SUBCUT Q24H [facility] Last Admin: 04/22/25 16:45 Dose: 40 mg Documented By: DIA Fluoxetine HCl (Fluoxetine Hcl Oral Solution 20 Mg/5 Ml Solution) 10 mg G-TUBE DAILY [facility] Last Admin: 04/23/25 08:36 Dose: 10 mg Documented By: FLO Comments: Guaifenesin/Dextromethorphan (Guaifenesin Dm 100/10/5 Ml 5 Ml Syrup) 5 ml PO Q4H PRN PRN Reason: Cough Azithromycin 500 mg/ Sodium (Chloride) 250 mls @ 125 mls/hr IV Q24H [facility] Last Infusion: 04/22/25 18:44 Dose: Infused Documented By: HAYLEY Magnesium Hydroxide (Milk Of Magnesia 30 Ml Oral.Susp) 30 ml PO DAILY PRN PRN Reason: Constipation Melatonin (Melatonin 3 Mg Tablet) 6 mg PO BEDTIME PRN PRN Reason: Insomnia Last Admin: 04/22/25 20:36 Dose: 6 mg Documented By: HAYLEY Non-Formulary Medication (Cetirizine) 10 mg feeding tube DAILY PRN PRN Reason: Allergy Symptoms Non-Formulary Medication (Levothyroxine [Tirosint-Stephy]) 100 mcg feeding tube DAILY@0600 LEATHA Ondansetron HCl (Ondansetron Hcl 4 Mg/2 Ml Vial) 4 mg IVPUSH Q8H PRN PRN Reason: Nausea and Vomiting Oxycodone HCl (Oxycodone Hcl Immed Release 5 Mg Tablet) 10 mg PO Q4H PRN PRN Reason: Pain, Moderate(Pain Scale 4-6) Last Admin: 04/23/25 08:37 Dose: 10 mg Documented By: FLO Polyethylene Glycol (Polyethylene Glycol 3350 17 Gm Powd.Pack) 17 gm PO DAILY [facility] Last Admin: 04/23/25 08:37 Dose: 17 gm Documented By: FLO Senna (Sennosides Oral Syrup 8.8 Mg/5 Ml) 8.8 mg PO BEDTIME [facility] Last Admin: 04/22/25 20:36 Dose: 8.8 mg Documented By: HAYLEY Senna (Sennosides Oral Syrup 8.8 Mg/5 Ml) 8.8 mg G-TUBE BID PRN PRN Reason: Constipation Sodium Chloride (0.9 % Sodium Chloride Flush 3 Ml Syringe) 3 ml IVFLUSH QSHIFT [facility] Last Admin: 04/23/25 08:37 Dose: 3 ml Documented By: FLO Labs 04/22/25 06:35 04/22/25 06:35 Microbiology Microbiology Results: Microbiology 04/21/25 16:07 Blood Culture - Preliminary Blood - Venous No growth after 24 hours. 04/21/25 16:14 Blood Culture - Preliminary Blood - Venous No growth after 24 hours. 04/21/25 Unknown Urine Culture - Final Urine clean catch - Clean Catch Midstream Assessment and Plan (1) Pneumonia: Status: Acute Plan 64-year-old man admitted secondary to severe constipation and found to have pneumonia Acute hypoxic respiratory failure secondary to Multifocal pneumonia and possible volume overload Question aspiration pneumonia received one dose of lasix on day of admit, but no further need as BNP is neg continue Rocephin and azithromycin neg blood cultures after 24 hrs Albuterol as needed Hold off on steroids for now May use supplemental oxygen to keep oxygen saturation greater than 91%. Severe constipation Likely cause of abdominal pain Disempaction in the ED continue bowel regimen, will add enema Hyponatremia, improving Possibly secondary to dehydration Received IV fluids in the ED Normocytic anemia No active bleeding Follow CBC Severe calorie malnutrition. BMI 15.5 High-protein diet On Isosource at home 2 cans 3 times a day, we will give Osmolite 1.5 while inpatient G-tube, nutrition consultation DISPO PT consult DVT prophylaxis with Lovenox Full code Quality Stroke Does the patient have a stroke diagnosis?: No VTE Prior VTE?: No VTE Risk Level:: Medical - moderate - high VTE Device Contraindication: Treatment Not Indicated VTE Drug Contraindication: N/A - Med Ordered
--- NOTE | 2025-04-23 11:44 | MHC.CM.PN ---
EMR REVIEWED, PT W/PNA, PER HOSPITALIST ANTIC PT WILL NEED 1-2 MORE DAYS INPT AND PT EVAL FOR DISPO, CM WILL CONT TO FOLLOW DC NEEDS.
--- NOTE | 2025-04-23 13:08 | MHC.CLN ---
NUTRITION RECEIVES NUTRITION/HYDRATION VIA TUBE FEEDING. QUALIFIES SEVERELY MALNOURISHED WITH SEVERE DEPLETION OF BODY FAT AND MUSCLE MASS AND SIGNIFICANT WEIGHT LOSS X 9 MONTHS. HX THROAT/TONSIL CANCER. HOME BOLUS TUBE FEEDING OF ISOSOURCE, 2 CANS, 3 X DAY. PROVIDES 1500 ML FORMULA, 2250 KCALS, 102 G PROTEIN. RECOMMEND CONTINUE BOLUS FEEDING DURING ADM WITH OSMOLITE 1.5, 500 ML Q 8 HOURS PLUS FREE WATER FLUSHES 240 ML Q 8 HOURS. PROVIDES 1500 ML FORMULA, 2250 KCALS (31.4 KCALS/KG IBW), 94 G PROTEIN (1.3 G/KG IBW), TOTAL FREE WATER FROM FORMULA AND FLUSHES 1863 ML (25.6 ML/KG). IF PATIENT WAS NOT CONSISTENTLY TAKING HOME TUBE FEEDING, MAY BE AT RISK FOR REFEEDING. NOTE THAT HOME TUBE FEEDING HAS FIBER AND OSMOLITE 1.5 DOES NOT HAVE FIBER. ESTIMATED NUTRITION NEEDS BASED ON IBW SINCE PATIENT IS SEVERELY MALNOURISHED WITH BMI=15.5. FOLLOW FOR TUBE FEED TOLERANCE AND LABS. SEE CLINICAL NUTRITION ASSESSMENT 04/23/25.
[2025-04-23] MEDS: Sennosides Oral Syrup 8.8 MG/5 ML PO (22:25)
[2025-04-24] VITALS (8 sets, daily range): BP systolic 82–99; BP diastolic 38–56; PULSE 80–93; RESP 16–18; TEMP 35.7–36.8; O2SAT 86–98
[2025-04-24] MEDS: oxyCODONE HCl Immed Release 5 MG TABLET 10 MG PO ×3 (04:23→13:22)
[2025-04-24 06:48] LABS: Anion Gap 10 (12-20); Blood Urea Nitrogen 11 mg/dL (9-16); Calcium 8.6 mg/dL (8.4-10.2); Carbon Dioxide 35 mmol/L (22-29); Chloride 93 mmol/L (96-108); Creatinine Clr Calc Pharmacy 97.6; Estimated Glomerular Filt Rate > 60; Magnesium 2.1 mg/dL (1.6-2.6); Potassium 3.5 mmol/L (3.3-5.1); Sodium 134 mmol/L (135-145)
[2025-04-24] MEDS: Albuterol Sulfate (0.083%) 2.5 MG/3 ML VIAL.NEB INHALE ×2 (07:47→11:15)
[2025-04-24] MEDS: 0.9 % Sodium Chloride Flush 3 ML SYRINGE IVFLUSH (08:45)
[2025-04-24] MEDS: FLUoxetine HCl Oral Solution 20 MG/5 ML SOLUTION 10 MG G-TUBE (08:45)
--- NOTE | 2025-04-24 09:14 | PM.DS ---
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 Patient does not take any oral food or fluid it has a patent G-tube which he reports is working at this point. Patient lives alone but does have family supports, he ambulates with a cane. He did report some abdominal pain and rectal pressure and was secondary to severe constipation, he was disimpacted in the ED. patient reported that he has not had a bowel movement for about 4 days and has felt generally unwell. He denied fever, chills, nausea, vomiting, diarrhea, recent travel, sick contacts. Chest x-ray showed multifocal pneumonia on the right side, abdominal CT showing stercoral colitis. Sodium was noted to be 130 and vital signs stable. The patient received enema, MiraLax, IV fluids, Rocephin and doxycycline in the ER. He will be admitted for further management and treatment of severe constipation and pneumonia 65-year-old man treated for acute hypoxic respiratory failure secondary to multifocal pneumonia. Patient initially received 1 dose of IV Lasix but no further as needed as BNP was negative and patient did not appear to be fluid overloaded. Blood cultures have remained negative. Patient treated with albuterol as needed, no steroids. Started on supplemental oxygen, weaned down to 1 L, had home oxygen evaluation and will require 1 L with activity. Patient should continue course of antibiotics for pneumonia. Constipation. Likely cause of abdominal pain initially. Disimpacted in the ED and treated with enema. Continue bowel regimen at home Hyponatremia. Resolved. Likely secondary to poor p.o. intake. Received IV fluids. Normocytic anemia. No active bleeding Severe calorie malnutrition. BMI 15.5. Regards high-protein diet. On Isosource at home 2 cans 3 times a day. Treated with Osmolite 1.5 while inpatient through G-tube. Patient should continue high-protein diet at home Time Attestation Discharge Coordination Time (in mins): 45 Quality: Safe Use of Opioids Does Pt have an Active Cancer Diagnosis on the Problem List?: No Quality: Stroke Does the patient have a stroke diagnosis?: No Physical Exam Vital Signs: Vital Signs: Last Vital Signs Temp 96.3 F L 04/24/25 07:08 Pulse 87 04/24/25 07:47 Resp 18 04/24/25 07:47 BP 97/56 L 04/24/25 07:08 Pulse Ox 98 04/24/25 07:08 O2 Del Method Nasal Cannula 04/24/25 07:08 O2 Flow Rate 1 04/24/25 07:08 BMI result Body Mass Index 15.5 Appearing in no acute distress, thin and frail head is normocephalic atraumatic eyes pupils are PERRLA sclera is anicteric mouth throat mucous membranes are intact and moist neck is supple no lymphadenopathy, no JVD noted lung sounds are clear to auscultation heart regular rate rhythm, clear S1, S2 positive bowel sounds, abdomen is soft, nontender neuro patient is alert x3, no focal deficits DS: Data Data Completed and Pending Labs on day of discharge: Laboratory Results - last 24 hr 04/24/25 05:59 Hold Purple Top SEE NOTE Sodium 134 L Potassium 3.5 Chloride 93 L Carbon Dioxide 35 H Anion Gap 10 L BUN 11 Creatinine 0.50 Estim Creat Clear Calc 97.6 Estimated GFR > 60 Random Glucose 124 H Calcium 8.6 Phosphorus 2.9 Magnesium 2.1 Preliminary micro results at discharge 04/21/25 16:07 Blood Culture - Preliminary Blood - Venous No growth after 48 hours. 04/21/25 16:14 Blood Culture - Preliminary Blood - Venous No growth after 48 hours. Discharge Plan Discharge Anticipated Discharge Date/Time: 04/24/25 09:10 Patient Disposition: Home Health Service Discharge Diagnosis: Pneumonia Constipation Referrals: Isiah Galvan MD [Primary Care Provider, Medical] - 1 Week Discharge Medications: New sennosides [senna] 8.8 mg/5 mL Syrup 8.8 mg PO BEDTIME Qty: 120 0RF cefuroxime axetil 500 mg tablet 500 mg PO BID Qty: 8 0RF azithromycin 500 mg tablet 500 mg PO DAILY 4 Days Qty: 4 0RF Continued fluoxetine 20 mg/5 mL (4 mg/mL) solution 10 mg feeding tube DAILY sennosides [senna] 8.8 mg/5 mL syrup 5 ml feeding tube BID PRN (Reason: constipation) cyclobenzaprine 5 mg tablet 5 mg PO TID PRN (Reason: neck pain) Tirosint-Stephy 100 mcg/mL solution 100 mcg feeding tube DAILY@0600 sodium chloride 7 % solution for nebulization 4 ml INHALATION BID Rx Instructions: Mix 4mL hypertonic saline 7% with 0.5mL of 5mg/mL albuterol and use via nebulizer twice daily ketoconazole 2 % shampoo 1 appl topical 2XW hydrocortisone 2.5 % lotion 1 appl topical DAILY famotidine 40 mg/5 mL (8 mg/mL) Suspension For Reconstitution 20 mg feeding tube BID PRN (Reason: Acid Reflux) melatonin 1 mg/mL liquid 1 mg PO BEDTIME PRN (Reason: insomnia) acetaminophen 160 mg/5 mL (5 mL) Solution 640 mg feeding tube Q6H PRN (Reason: Pain) cetirizine 5 mg/5 mL Solution 10 mg feeding tube DAILY PRN (Reason: Allergy Symptoms) naloxone [Narcan] 4 mg/actuation spray,non-aerosol 1 spray intranasal DAILY PRN (Reason: Opioid Overdose) oxycodone 10 mg tablet 10 mg feeding tube Q4H PRN (Reason: Pain) polyethylene glycol 3350 17 gram powder in packet 17 g PO DAILY Discharge Orders: Discharge Order (Routine); Ordered 04/24/25 Ordered By: Meenakshi Giron Diet: Advance to usual diet Activity on Discharge: As tolerated Stand Alone Forms: Patient Portal Discharge page Print Language: Ukrainian Care Plan Goals: Complete course of antibiotics You will be sent home with 1 L of oxygen use with activity and at rest Health Concerns: Pneumonia Constipation Plan of Treatment: Follow up with primary care provider as needed Take all medications as prescribed Assessment: See discharge summary
--- NOTE | 2025-04-24 10:50 | P.F2F_ITS ---
Service Date Service Date: 04/24/25 Encounter Date of encounter: 04/24/25 Reasons for Services Signs and symptoms assessed: Multifocal pneumonia, new oxygen Reason for intermediate: CV/CP assess and/or care and other (New to oxygen) Reason for physical therapy: home safety and mobility Homebound: Leaving the home is medically contraindicated at this time without the asist of a device and/or another person due th the listed conditions above and below. Reason homebound: unsteady gait / fall risk and weakness related to hospital stay Certification: Based on the above findings, I certify that this patient is confined to the home and needs intermittent intermediate care, physical therapy and/or speech therapy, or continues to need occupational therapy. The patient is under my care, and I have initiated the establishment of the plan of care. The patient will be followed by a physician who will periodically review the plan of care. Time Spent With Patient Time: Total time managing care of this patient today ____ minutes.
== END 2025-04-24 15:18 | disposition home health service (06) | DRG 193 ==
LOC: HO.ED 16:04 → HO.S3 17:33 → HO.EDOVER 17:59 → HO.IMC 20:32
PROVIDERS: Admitting Provider Nurse Practitioner Acute Care; Emergency Provider Emergency Medicine; PCP Internal Medicine; Visit Provider Nurse Practitioner Acute Care
DX: J18.9 Pneumonia, unspecified organism (principal); E43 Unspecified severe protein-calorie malnutrition; J96.01 Acute respiratory failure with hypoxia; E87.1 Hypo-osmolality and hyponatremia; Z68.1 Body mass index [BMI] 19.9 or less, adult; E86.0 Dehydration; Z93.1 Gastrostomy status; K59.00 Constipation, unspecified; D64.9 Anemia, unspecified; Z20.822 Contact with and (suspected) exposure to COVID-19; Z79.899 Other long term (current) drug therapy
CPT/HCPCS: 36415; 71045; 74176; 80048; 80053; 81001; 83735; 83880; 84100; 85007; 85027; 87040; 87086; 87633; 94640; 97161; 99285; J0456; J0696; J1271; J1650; J1938; J2270

== ENCOUNTER → 2025-04-21 11:56 | Outpatient (BNV) | payer OTHER, SELFPAY | PROVIDERS: Emergency Provider Emergency Medicine; PCP Internal Medicine; Visit Provider Radiology Vascular & Interventional Radiology | DX: K56.49 Other impaction of intestine (principal); J84.9 Interstitial pulmonary disease, unspecified | CPT/HCPCS: 71045; 74176 ==

== ENCOUNTER → 2025-04-21 16:00 | Outpatient (BNV) | payer OTHER, SELFPAY | PROVIDERS: Admitting Provider Nurse Practitioner Acute Care; Emergency Provider Emergency Medicine; PCP Internal Medicine; Visit Provider Nurse Practitioner Acute Care | DX: J18.9 Pneumonia, unspecified organism (principal) | CPT/HCPCS: 99223; 99232; 99239; G0180 ==